=== PATIENT | male | born 1975 | race Caucasian/White ===

== ENCOUNTER 2017-09-03 12:07 | Inpatient (IN) ==
[2017-09-03] MEDS ORDERED: *HR* LORazepam 2 MG/ML VIAL IVP ONE (12:36)
[2017-09-03] MEDS ORDERED: 0.9 % Sodium Chloride 1,000 ML IVC ONE (12:36)
[2017-09-03] MEDS ORDERED: Metoclopramide 10 MG/2 ML VIAL IVP ONE (12:36)
[2017-09-03] MEDS ORDERED: *HR* Metoprolol 5 MG/5 ML VIAL IVP ONE (12:45)
[2017-09-03 12:47] LABS: Bilirubin,Urine Negative (Negative); Blood,Urine Negative (Negative); Clarity,Urine Clear (Clear); Color,Urine Yellow (Yellow); Glucose,Urine (UA) Normal (Normal); Ketones,Urine Negative (Negative); Leukocyte Esterase,Urine Negative (Negative); Nitrite,Urine Negative (Negative); PH,Urine 6.5 pH Units (5.0-8.0); Protein,Urine Negative (Neg-Trace); Specific Gravity,Urine 1.021 (1.010-1.025); Urobilinogen,Urine Normal (Normal)
--- NOTE | 2017-09-03 12:49 | Emergency Department Note ---
Disposition Clinical Impression: Suicidal ideation Hypertension Qualifiers: Hypertension type: unspecified Qualified Code(s): I10 - Essential (primary) hypertension Disposition: Admitted As Inpatient Referrals: NONE,PCP [Primary Care Provider] - Forms: ED Satisfaction Letter Time of Disposition: 17:11 General Adult HPI - General Chief complaint: ED Psychiatric Symptoms Stated complaint: SI Time Seen by Provider: 09/03/17 12:15 Source: patient Mode of arrival: ambulatory Limitations: no limitations Nursing Notes Reviewed: Yes Vital Signs Reviewed: Yes - History of Present Illness HPI Narrative: 41 year old male who has bene dealing with increased family and social stressors such as just getting , starting a new job, and going back to school has been havin increased signs of hopelessness and depression and in the past week he has been wanting to kill himself and end it all. In addition to that he also has been battling with increased HTNa nd has not been taking any of his HTN medications and has missed a few doses. Shawn states that he also has a mild headche but this has not changed in character or duration from his typical headache and they are tupically due ot HTN. Shawn denies chest pain. He also has been dealing with a reent stomach virus with NVD, but denies abdominal pain Pain Scale: 8 - Related Data Home Medications Medication Instructions Recorded Confirmed Escitalopram [Lexapro] 20 mg PO QAM 11/22/14 01/23/17 Levothyroxine [Synthroid] 75 mcg PO QAM 11/22/14 01/23/17 hydroCHLOROthiazide 25 mg PO QAM 11/22/14 01/23/17 [Hydrochlorothiazide] Esomeprazole Magnesium [Nexium] 20 mg PO QAM 02/21/15 01/23/17 Flaxseed Oil 1,000 mg PO QAM 02/21/15 01/23/17 Losartan Potassium [Cozaar] 50 mg PO DAILY 01/23/17 01/23/17 Phenylephrine HCl in 0.9% NaCl 0.25 - 0.5 ml IJ AD 01/23/17 01/23/17 [Phenylephrine 1 mg/ml-Ns Syrng] Previous Rx's Medication Instructions Recorded Clindamycin [Cleocin] 150 mg PO Q6HR #7 capsule 01/23/17 HYDROcodone/Acet 5/325 mg [Comstock 1 tab PO Q6H PRN #20 tab 01/23/17 5-325 mg] Ibuprofen [Motrin] 600 mg PO Q8HR #20 tab 01/23/17 OxyCODONE/APAP 5/325 [Percocet 1 each PO Q6HR PRN #15 tablet 01/25/17 5/325 MG] Allergies Allergy/AdvReac Type Severity Reaction Status Date / Time Penicillins [PCN] Allergy Anaphylaxis Verified 09/03/17 12:12 acetaminophen [From Vicodin] AdvReac Agitated Verified 09/03/17 13:41 hydrocodone [From Vicodin] AdvReac Agitated Verified 09/03/17 13:41 Constitutional: Denies: fever, chills, weakness, weight change Eyes: Denies: eye pain, eye discharge, vision change ENT ED: Denies: ear pain, throat pain, dental pain, hearing loss, epistaxis, congestion, dysphagia Cardiovascular: Denies: chest pain, palpitations, dyspnea on exertion, edema, syncope Respiratory: Denies: cough, dyspnea, wheezes, hemoptysis, stridor Gastrointestinal: Reports: nausea, vomiting, diarrhea. Denies: abdominal pain, constipation, hematemesis, melena, hematochezia Genitourinary: Denies: urgency, dysuria, frequency, hematuria Musculoskeletal: Denies: back pain, neck pain, arthralgia, myalgia Integumentary: Denies: rash, abrasion, lesions Neurological: Reports: headache. Denies: weakness, numbness, paresthesias, confusion, abnormal gait, vertigo Psychiatric: Reports: depression, suicidal thoughts. Denies: anxiety, homicidal thoughts, auditory hallucinations, visual hallucinations Endocrine: Denies: fatigue Hematological/Lymphatic: Denies: easy bleeding, easy bruising Allergic/Immunologic: Denies: facial swelling, urticaria Past Medical History - Past Medical History Medical history: Reports: GERD, hypertension, migraine, thyroid disease Surgical history: Reports: appendectomy Psychiatric history: Reports: anxiety, depression, panic disorder - Social History Smoking Status: Former smoker Smokeless Tobacco Status: No Alcohol use: Reports: occasionally Drug use: Reports: none Physical Exam - General Limitations: no limitations General appearance: alert, in no apparent distress - Head Head exam: atraumatic, normocephalic, normal inspection - Eye Eye exam: Present: normal appearance, PERRL, EOMI - Expanded Eye Exam Pupils: Bilateral: reactive - ENT ENT exam: normal exam, normal oropharynx, mucous membranes moist - Expanded ENT Exam External ear exam: Present: normal external inspection Mouth exam: Present: normal external inspection Teeth exam: Present: normal inspection Throat exam: Present: normal inspection - Neck Neck exam: Present: normal inspection, full ROM, trachea midline - Chest Chest inspection: Present: normal inspection, symmetric chest wall rise - Respiratory Respiratory exam: Present: normal lung sounds bilaterally - Cardiovascular Cardiovascular exam: Present: regular rate, normal rhythm, normal heart sounds - Abdominal Exam Abdominal exam: Present: soft, Non-Tender. Absent: tenderness, distention, guarding, rebound, rigidity - Extremities Exam Extremities exam: Present: normal inspection, full ROM. Absent: tenderness, pedal edema - Expanded Upper Extremity Exam Shoulder exam: Present: normal inspection, full ROM Arm exam: Present: normal inspection, full ROM Elbow exam: Present: normal inspection, full ROM Forearm/Wrist exam: Present: normal inspection, full ROM Hand exam: Present: normal inspection, full ROM Vascular exam: Normal: capillary refill, radial pulse - Expanded Lower Extremity Exam Hip/Pelvis exam: Present: normal inspection, full ROM Upper leg exam: Present: normal inspection, full ROM Knee exam: Present: normal inspection, full ROM Lower leg exam: Present: normal inspection, full ROM Ankle exam: Present: normal inspection, full ROM Foot/toe exam: Present: normal inspection, full ROM Neurovascular/Tendon exam: Absent: motor deficit, sensory deficit, tendon deficit - Back Exam Back exam: Present: normal inspection, full ROM. Absent: tenderness - Neurological Exam Neurological exam: Present: alert, oriented X3 - Expanded Neurological Exam Patient oriented to: Present: person, place, time Speech: Present: fluid speech Cranial nerves: EOM function (II, III, IV, ): Normal, facial sensation (V): Normal, facial palsy (VII): Normal, gag reflex (IX): Normal, spinal accessory function (XI): Normal, tongue deviation (XII): Normal Cerebellar function: finger to nose: Normal, heel to ng: Normal Cerebellar function: normal gait Motor strength - LUE: 5/5 Motor strength - RUE: 5/5 Motor strength - LLE: 5/5 Motor strength - RLE: 5/5 Upper motor neuron exam: kika neglect: Absent bilaterally, pronator drift: Absent bilaterally Sensory exam upper extremity: light touch: Normal, pin prick: Normal Sensory exam lower extremity: light touch: Normal, pin prick: Normal Coma Scale Eye Opening: Spontaneous Coma Scale Motor Response: Obeys Commands Coma Scale Verbal Response: Oriented Coma Scale Total: 15 - Psychiatric Psychiatric exam: Present: normal affect, normal mood - Skin Skin exam: Present: warm, dry, intact, normal color Course Course Narrative: we will do a hypertensinve emergency workup and likey admit to medicnie and then they can consult [facility] - Reevaluation(s) Reevaluation #1: patients blood pressure has improved to 150/90s. He is medically cleared. [facility] consult Time: 14:19 - Consultations Consultation #1: [facility] has accepted patient for admission. Time: 17:11 Vital Signs Temperature 98.0 F 09/03/17 12:10 Pulse Rate 102 09/03/17 12:10 Respiratory Rate 18 09/03/17 12:10 Blood Pressure 196/117 09/03/17 12:10 O2 Sat by Pulse Oximetry 98 09/03/17 12:10 Temperature 98.0 F 09/03/17 13:41 Pulse Rate 84 09/03/17 15:21 Respiratory Rate 18 09/03/17 15:21 Blood Pressure 141/90 09/03/17 15:21 O2 Sat by Pulse Oximetry 97 09/03/17 15:21 Oxygen Delivery Oxygen Delivery Room Air Medical Decision Making - Medical Records Medical records reviewed: Yes I reviewed the patient's medical records. - Lab Data Lab results reviewed: Yes I reviewed the patient's lab results. Result diagrams: 09/03/17 12:25 09/03/17 12:25 Lab Results 09/03/17 09/03/17 09/03/17 Range/Units 12:25 12:25 12:25 WBC 7.3 (4.3-11.1) K/mcL RBC 5.32 (4.19-5.50) M/mcL Hgb 14.4 (12.9-16.9) g/dL Hct 42.8 (37.5-50.1) % MCV 80.5 L (83.0-100.0) fL MCH 27.1 L (28.0-33.3) pg MCHC 33.6 (31.6-35.5) g/dL RDW 13.2 (11.5-14.5) % Plt Count 331 (140-400) K/mcL MPV 9.2 L (9.4-12.4) fL Immature Gran % 0.3 (0-4) % Seg Neutrophils % 64.0 % Lymphocytes % 26.9 % Monocytes % 6.2 % Eosinophils % 2.2 % Basophils % 0.4 % Neutrophils # 4.7 (1.6-8.9) K/mcL Lymphocytes # 2.0 (0.6-4.6) K/mcL Monocytes # 0.5 (0.0-1.3) K/mcL Eosinophils # 0.2 (0.0-0.6) K/mcL Basophils # 0.0 (0.0-0.2) K/mcL PT (9.4-12.1) Seconds INR APTT (26.0-36.0) Seconds Sodium (136-145) mEq/L Potassium (3.5-5.1) mEq/L Chloride (98-107) mEq/L Carbon Dioxide (23-29) mEq/L BUN (6-20) mg/dL Creatinine (0.70-1.30) mg/dL Est GFR ( Amer) (> 60) Est GFR (Non-Af Amer) (> 60) BUN/Creatinine Ratio (6-26) Glucose (70-105) mg/dL Calculated Osmolality (280-300) Calcium (8.6-10.3) mg/dL Total Bilirubin (0.3-1.0) mg/dL Direct Bilirubin (0.0-0.2) mg/dL Indirect Bilirubin (0.0-1.2) mg/dL AST (13-39) Units/L ALT (7-52) Units/L Alkaline Phosphatase (34-104) Units/L Troponin I (< 0.04) ng/mL Serum Total Protein (6.4-8.9) g/dL Albumin (3.5-5.7) g/dL Globulin (2.4-3.5) g/dL Albumin/Globulin Ratio (1.1-2.2) Lipase (11-82) Units/L Urine Color Yellow (Yellow) Urine Clarity Clear (Clear) Urine pH 6.5 (5.0-8.0) pH Units Ur Specific Stearns 1.021 (1.010-1.025) Urine Protein Negative (Neg-Trace) mg/dL Urine Glucose (UA) Normal (Normal) mg/dL Urine Ketones Negative (Negative) mg/dL Urine Blood Negative (Negative) Urine Nitrite Negative (Negative) Urine Bilirubin Negative (Negative) Urine Urobilinogen Normal (Normal) mg/dL Ur Leukocyte Esterase Negative (Negative) Salicylates (15.0-30.0) mg/dL Urine Opiates Screen Negative (Qctmqg=630) ng/mL Acetaminophen (10-20) mcg/mL Ur Barbiturates Screen Negative (Yeacxh=664) ng/mL Ur Phencyclidine Scrn Negative (Cutoff=25) ng/mL Ur Amphetamines Screen Negative (Nkleal=7124) ng/mL U Benzodiazepines Scrn Negative (Modmbl=208) ng/mL Urine Cocaine Screen Negative (Cutoff= 300) ng/mL U Marijuana (THC) Screen Negative (Cutoff = 50) ng/mL Ethyl Alcohol (Less than 10) mg/dL 09/03/17 09/03/17 09/03/17 Range/Units 12:25 12:42 12:42 WBC (4.3-11.1) K/mcL RBC (4.19-5.50) M/mcL Hgb (12.9-16.9) g/dL Hct (37.5-50.1) % MCV (83.0-100.0) fL MCH (28.0-33.3) pg MCHC (31.6-35.5) g/dL RDW (11.5-14.5) % Plt Count (140-400) K/mcL MPV (9.4-12.4) fL Immature Gran % (0-4) % Seg Neutrophils % % Lymphocytes % % Monocytes % % Eosinophils % % Basophils % % Neutrophils # (1.6-8.9) K/mcL Lymphocytes # (0.6-4.6) K/mcL Monocytes # (0.0-1.3) K/mcL Eosinophils # (0.0-0.6) K/mcL Basophils # (0.0-0.2) K/mcL PT 10.4 (9.4-12.1) Seconds INR 1.0 APTT 26.4 (26.0-36.0) Seconds Sodium 137 (136-145) mEq/L Potassium 3.3 L (3.5-5.1) mEq/L Chloride 101 (98-107) mEq/L Carbon Dioxide 28 (23-29) mEq/L BUN 13 (6-20) mg/dL Creatinine 0.84 (0.70-1.30) mg/dL Est GFR ( Amer) > 60 (> 60) Est GFR (Non-Af Amer) > 60 (> 60) BUN/Creatinine Ratio 15 (6-26) Glucose 152 H (70-105) mg/dL Calculated Osmolality 287 (280-300) Calcium 9.7 (8.6-10.3) mg/dL Total Bilirubin 0.3 (0.3-1.0) mg/dL Direct Bilirubin 0.1 (0.0-0.2) mg/dL Indirect Bilirubin 0.2 (0.0-1.2) mg/dL AST 12 L (13-39) Units/L ALT 12 (7-52) Units/L Alkaline Phosphatase 77 (34-104) Units/L Troponin I < 0.03 (< 0.04) ng/mL Serum Total Protein 6.5 (6.4-8.9) g/dL Albumin 4.0 (3.5-5.7) g/dL Globulin 2.5 (2.4-3.5) g/dL Albumin/Globulin Ratio 1.6 (1.1-2.2) Lipase 33 (11-82) Units/L Urine Color (Yellow) Urine Clarity (Clear) Urine pH (5.0-8.0) pH Units Ur Specific Stearns (1.010-1.025) Urine Protein (Neg-Trace) mg/dL Urine Glucose (UA) (Normal) mg/dL Urine Ketones (Negative) mg/dL Urine Blood (Negative) Urine Nitrite (Negative) Urine Bilirubin (Negative) Urine Urobilinogen (Normal) mg/dL Ur Leukocyte Esterase (Negative) Salicylates < 2.5 L (15.0-30.0) mg/dL Urine Opiates Screen (Zhyflp=120) ng/mL Acetaminophen < 10 L (10-20) mcg/mL Ur Barbiturates Screen (Blvupd=469) ng/mL Ur Phencyclidine Scrn (Cutoff=25) ng/mL Ur Amphetamines Screen (Xllhhl=8289) ng/mL U Benzodiazepines Scrn (Umlhit=822) ng/mL Urine Cocaine Screen (Cutoff= 300) ng/mL U Marijuana (THC) Screen (Cutoff = 50) ng/mL Ethyl Alcohol < 10 (Less than 10) mg/dL - Radiology Data Radiology results reviewed: Yes I reviewed the patient's radiology results. - EKG Data EKG #1 EKG attestation: Yes I reviewed and interpreted this EKG. EKG results narrative: NSR with rate of 95. NO STEMI. normal interlva.s no old ekg. 1244
[2017-09-03 13:11] LABS: Amphetamine Screen,Urine Negative ng/mL (Cutoff=1000); Barbiturate Screen,Urine Negative ng/mL (Cutoff=200); Benzodiazepines Screen,Urine Negative ng/mL (Cutoff=200); Cannabinoid Screen,Urine Negative ng/mL (Cutoff = 50); Cocaine Screen,Urine Negative ng/mL (Cutoff= 300); Opiate Screen,Urine Negative ng/mL (Cutoff=300); Phencyclidine Screen,Urine Negative ng/mL (Cutoff=25)
[2017-09-03 13:20] LABS: Eosinophils % 2.2 %; Hematocrit 42.8 % (37.5-50.1); Hemoglobin 14.4 g/dL (12.9-16.9); Immature Granulocytes % 0.3 % (0-4); Lymphocytes % 26.9 %; Mean Corpuscular HGB Conc 33.6 g/dL (31.6-35.5); Mean Corpuscular Hemoglobin 27.1 pg (28.0-33.3); Mean Corpuscular Volume 80.5 fL (83.0-100.0); Mean Platelet Volume 9.2 fL (9.4-12.4); Monocytes % 6.2 %; Platelet Count 331 K/mcL (140-400); Red Blood Count 5.32 M/mcL (4.19-5.50); Red Cell Distribution Width 13.2 % (11.5-14.5)
[2017-09-03 13:21] LABS: Basophils % 0.4 %; Eosinophils # 0.2 K/mcL (0.0-0.6); Monocytes # 0.5 K/mcL (0.0-1.3); Neutrophils # 4.7 K/mcL (1.6-8.9)
[2017-09-03 13:25] LABS: Prothrombin Time 10.4 Seconds (9.4-12.1)
[2017-09-03 13:28] LABS: Activated Partial Thrombo Time 26.4 Seconds (26.0-36.0)
[2017-09-03 13:48] LABS: Albumin/Globulin Ratio 1.6 (1.1-2.2); Bilirubin,Direct 0.1 mg/dL (0.0-0.2); Bilirubin,Indirect 0.2 mg/dL (0.0-1.2); Bilirubin,Total 0.3 mg/dL (0.3-1.0); Globulin 2.5 g/dL (2.4-3.5); Total Protein 6.5 g/dL (6.4-8.9)
[2017-09-03 13:49] LABS: Acetaminophen < 10 mcg/mL (10-20); BUN/Creatinine Ratio 15 (6-26); Blood Urea Nitrogen 13 mg/dL (6-20); Calcium 9.7 mg/dL (8.6-10.3); Carbon Dioxide 28 mEq/L (23-29); Chloride 101 mEq/L (98-107); Ethanol < 10 mg/dL (Less than 10); Glucose 152 mg/dL (70-105); Osmolality,Calculated 287 (280-300); Potassium 3.3 mEq/L (3.5-5.1); Salicylate < 2.5 mg/dL (15.0-30.0); Sodium 137 mEq/L (136-145); eGFR For African Americans > 60 (> 60); eGFR For Non-African Americans > 60 (> 60)
[2017-09-03 14:44] LABS: Troponin I < 0.03 ng/mL (< 0.04)
[2017-09-03] MEDS ORDERED: MOM Conc 10 ML UD.LIQ PO PRN (20:02)
[2017-09-03] MEDS ORDERED: Mag Hydrox/Al Hydrox/Simeth 30 ML UDC PO PRN (20:02)
[2017-09-03] MEDS ORDERED: *HR* LORazepam 2 MG/ML VIAL IM PRN (20:02)
[2017-09-03] MEDS ORDERED: hydrOXYzine pamoate 25 MG CAPSULE PO PRN (20:02)
[2017-09-03] MEDS ORDERED: Ibuprofen 400 MG TABLET PO PRN (20:02)
[2017-09-03] MEDS ORDERED: *HR* LORazepam 1 MG TABLET PO PRN (20:02)
[2017-09-03] MEDS ORDERED: traZODone 50 MG TABLET PO PRN (20:02)
[2017-09-03] MEDS ORDERED: Haloperidol Lactate 5 MG/ML VIAL IM PRN (20:02)
[2017-09-03] MEDS: hydrOXYzine pamoate 25 MG CAPSULE PO SCH (21:40)
[2017-09-03] MEDS: traZODone 50 MG TABLET PO PRN (23:27)
[2017-09-04] MEDS: hydroCHLOROthiazide 25 MG TABLET PO SCH (08:49)
--- NOTE | 2017-09-04 10:43 | Psychiatry History & Physical ---
Date of Encounter: 09/04/17 Time of Encounter: 10:40 History of Present Illness Medicare Admission Attestation: For traditional Medicare patients the provided hospital inpatient services are reasonable and necessary and in the case of services not specified as inpatient -only under 42 CFR 419.22 (n), that they are appropriately provided as inpatient services in accordance 42 CFR 412.3. For Critical Access Hospital the patient may reasonably be expected to be discharged or transferred to a hospital within 96 hours after admission to the Critical Access Hospital. History of Present Illness: Mr. Harrington is a 41 year old male admitted from the emergency department for suicidal ideation. This is first psychiatric admission for this patient reports increasing stress due to his family issues and children issues and time management. Patient felt helpless and hopeless and increased his alcohol consumption to help him sleep. Patient states he had history of depression and mental health's treatment since young age and was treated with different antidepressants and he responded well to imipramine in the past and then Lexapro. Currently he is not followed by psychiatrist or therapist. He has 3 marriages and has 2 children from 2 different marriages and 2 different locations that require extensive driving long distances every week. Patient reports poor sleep, increase in anxiety, difficulty making decisions and feeling of guilt. Patient will live with his parents were very supportive. He denies smoking, the consume caffeine, alcohol consumption increased recently due to insomnia deny any other drugs. Past Med Surg Social Fam HX - Past Medical History Medical history: GERD, hypertension, migraine, thyroid disease - Past Psychiatric History Psychiatric history: Reports: depression. Denies: prior suicide attempt Past psychiatric history details: History of outpatient treatment. Treated was imipramine and Lexapro. Currently not under psychiatric care - Past Surgical History Surgical History: appendectomy - Social History Smoking Status: Former smoker Smokeless Tobacco Status: No Alcohol use: occasionally Drug use: none - Family History Mother Living Status: Still Living Father Living Status: Still Living Hx Family Cardiac Disorders: Yes (HTN) Hx Family Cancer: Yes (Brain cancer) Brother Living Status: Still Living Hx Family Cardiac Disorders: Yes (heart disease) Medications & Allergies Escitalopram [Lexapro] 20 mg PO DAILY 09/03/17 [History] Esomeprazole Magnesium [Nexium] 40 mg PO DAILY 09/03/17 [History] Losartan Potassium [Cozaar] 100 mg PO DAILY 09/03/17 [History] hydrOXYzine HCl [Hydroxyzine HCl] 50 mg PO HS 09/03/17 [History] hydroCHLOROthiazide [Hydrochlorothiazide] 25 mg PO DAILY 09/03/17 [History] 3 Allergy/AdvReac Type Severity Reaction Status Date / Time Penicillins [PCN] Allergy Anaphylaxis Verified 09/03/17 12:12 acetaminophen [From Vicodin] AdvReac Agitated Verified 09/03/17 13:41 hydrocodone [From Vicodin] AdvReac Agitated Verified 09/03/17 13:41 Review of Systems Psychiatric: Reports: depression, anxiety, suicidal ideation Exam - HEENT Head exam IM: Present: atraumatic Eye exam IM: Present: EOMI, normal appearance, PERRL ENT exam IM: Present: normal exam - Neurological Neurological exam: Present: CN II-XII intact - Respiratory Respiratory exam IM: Present: CTAB - GI/Abdominal GI/Abdominal exam IM: Present: normal bowel sounds, soft. Absent: tenderness - Extremities Extremities exam IM: Present: full ROM - Skin Skin exam IM: Present: dry, warm - Constitutional Vitals: Temp Pulse Resp BP Pulse Ox 97.7 F 71 18 149/96 97 09/04/17 08:22 09/04/17 08:22 09/04/17 08:22 09/04/17 08:22 09/03/17 15:21 General appearance: age & developmentally appropriate, well-groomed, well- nourished, average - Musculoskeletal Gait: normal Station: relaxed Strength & Tone: normal for patient - Psychiatric Patient Orientation: Yes Person, Yes Time, Yes Place Level of alertness: Alert Behavior: calm, cooperative, anxious Psychomotor activity: Normal Eye Contact: Maintains Eye Contact Mood Description: Euthymic/stable Affect description: congruent with mood, dysphoric Speech Volume: Normal Speech pattern: normal rate, normal rhythm, normal tone, fluent, spontaneous Language & Vocabulary: consistent with education Thought Process: Linear, Goal Oriented Thought Content: Yes Suicidal ideation, No Homicidal ideation, No Overt delusions Perceptual Disturbances: No Auditory hallucinations, No Visual hallucinations Attention Span Ability: Capable of Focused Attention Memory Description: Grossly Intact Patient Reliability: Reliable Historian Fund of knowledge: Yes abstraction ability, Yes average, Yes aware of current events Intelligence Estimate: Average Judgment: Limited Insight: Partial Results - Labs Labs: Laboratory Last Values WBC 7.3 K/mcL (4.3-11.1) 09/03/17 12:25 RBC 5.32 M/mcL (4.19-5.50) 09/03/17 12:25 Hgb 14.4 g/dL (12.9-16.9) 09/03/17 12:25 Hct 42.8 % (37.5-50.1) 09/03/17 12:25 MCV 80.5 fL (83.0-100.0) L 09/03/17 12:25 MCH 27.1 pg (28.0-33.3) L 09/03/17 12:25 MCHC 33.6 g/dL (31.6-35.5) 09/03/17 12:25 RDW 13.2 % (11.5-14.5) 09/03/17 12:25 Plt Count 331 K/mcL (140-400) 09/03/17 12:25 MPV 9.2 fL (9.4-12.4) L 09/03/17 12:25 Immature Gran % 0.3 % (0-4) 09/03/17 12:25 Seg Neutrophils % 64.0 % 09/03/17 12:25 Lymphocytes % 26.9 % 09/03/17 12:25 Monocytes % 6.2 % 09/03/17 12:25 Eosinophils % 2.2 % 09/03/17 12:25 Basophils % 0.4 % 09/03/17 12:25 Neutrophils # 4.7 K/mcL (1.6-8.9) 09/03/17 12:25 Lymphocytes # 2.0 K/mcL (0.6-4.6) 09/03/17 12:25 Monocytes # 0.5 K/mcL (0.0-1.3) 09/03/17 12:25 Eosinophils # 0.2 K/mcL (0.0-0.6) 09/03/17 12:25 Basophils # 0.0 K/mcL (0.0-0.2) 09/03/17 12:25 PT 10.4 Seconds (9.4-12.1) 09/03/17 12:42 INR 1.0 09/03/17 12:42 APTT 26.4 Seconds (26.0-36.0) 09/03/17 12:42 Sodium 137 mEq/L (136-145) 09/03/17 12:25 Potassium 3.3 mEq/L (3.5-5.1) L 09/03/17 12:25 Chloride 101 mEq/L (98-107) 09/03/17 12:25 Carbon Dioxide 28 mEq/L (23-29) 09/03/17 12:25 BUN 13 mg/dL (6-20) 09/03/17 12:25 Creatinine 0.84 mg/dL (0.70-1.30) 09/03/17 12:25 Est GFR ( Amer) > 60 (> 60) 09/03/17 12:25 Est GFR (Non-Af Amer) > 60 (> 60) 09/03/17 12:25 BUN/Creatinine Ratio 15 (6-26) 09/03/17 12:25 Glucose 152 mg/dL (70-105) H 09/03/17 12:25 Calculated Osmolality 287 (280-300) 09/03/17 12:25 Calcium 9.7 mg/dL (8.6-10.3) 09/03/17 12:25 Total Bilirubin 0.3 mg/dL (0.3-1.0) 09/03/17 12:42 Direct Bilirubin 0.1 mg/dL (0.0-0.2) 09/03/17 12:42 Indirect Bilirubin 0.2 mg/dL (0.0-1.2) 09/03/17 12:42 AST 12 Units/L (13-39) L 09/03/17 12:42 ALT 12 Units/L (7-52) 09/03/17 12:42 Alkaline Phosphatase 77 Units/L (34-104) 09/03/17 12:42 Troponin I < 0.03 ng/mL (< 0.04) 09/03/17 12:25 Serum Total Protein 6.5 g/dL (6.4-8.9) 09/03/17 12:42 Albumin 4.0 g/dL (3.5-5.7) 09/03/17 12:42 Globulin 2.5 g/dL (2.4-3.5) 09/03/17 12:42 Albumin/Globulin Ratio 1.6 (1.1-2.2) 09/03/17 12:42 Lipase 33 Units/L (11-82) 09/03/17 12:42 Urine Color Yellow (Yellow) 09/03/17 12:25 Urine Clarity Clear (Clear) 09/03/17 12:25 Urine pH 6.5 pH Units (5.0-8.0) 09/03/17 12:25 Ur Specific [place]bot 1.021 (1.010-1.025) 09/03/17 12:25 Urine Protein Negative mg/dL (Neg-Trace) 09/03/17 12:25 Urine Glucose (UA) Normal mg/dL (Normal) 09/03/17 12:25 Urine Ketones Negative mg/dL (Negative) 09/03/17 12:25 Urine Blood Negative (Negative) 09/03/17 12:25 Urine Nitrite Negative (Negative) 09/03/17 12:25 Urine Bilirubin Negative (Negative) 09/03/17 12:25 Urine Urobilinogen Normal mg/dL (Normal) 09/03/17 12:25 Ur Leukocyte Esterase Negative (Negative) 09/03/17 12:25 Salicylates < 2.5 mg/dL (15.0-30.0) L 09/03/17 12:25 Urine Opiates Screen Negative ng/mL (Tckjeg=960) 09/03/17 12:25 Acetaminophen < 10 mcg/mL (10-20) L 09/03/17 12:25 Ur Barbiturates Screen Negative ng/mL (Ytpqbx=469) 09/03/17 12:25 Ur Phencyclidine Scrn Negative ng/mL (Cutoff=25) 09/03/17 12:25 Ur Amphetamines Screen Negative ng/mL (Lnbyhe=5883) 09/03/17 12:25 U Benzodiazepines Scrn Negative ng/mL (Bmowde=185) 09/03/17 12:25 Urine Cocaine Screen Negative ng/mL (Cutoff= 300) 09/03/17 12:25 U Marijuana (THC) Screen Negative ng/mL (Cutoff = 50) 09/03/17 12:25 Ethyl Alcohol < 10 mg/dL (Less than 10) 09/03/17 12:25 Assessment and Plan (1) Severe recurrent major depression without psychotic features Current visit: Yes Status: Acute Plan: Admit inpatient for safety and stabilization, Close observation, Suicide Precautions per unit protocol, Encourage participation in unit milieu, Group Therapy, Monitor sleep, Monitor appetite Risks, benefits, side effects, alternatives discussed w/pt: Yes Patient agreeable to treatment: Yes Estimated Length of Stay (Days): 5
[2017-09-04] MEDS: traZODone 50 MG TABLET PO PRN ×2 (20:50→22:01)
[2017-09-04] MEDS: hydrOXYzine pamoate 25 MG CAPSULE PO SCH (20:51)
--- NOTE | 2017-09-05 08:23 | Electrocardiograph Report ---
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
[2017-09-05] MEDS: hydroCHLOROthiazide 25 MG TABLET PO SCH (09:12)
[2017-09-05 09:31] VITALS: BP 137/94
--- NOTE | 2017-09-05 12:37 | Discharge Summary ---
Date of Encounter: 09/05/17 Time of Encounter: 12:34 Diagnosis - Discharge Diagnosis (1) Severe recurrent major depression without psychotic features Status: Acute Medications - Discharge Medications Prescriptions: traZODone [TraZODone] 50 mg PO HS PRN #30 tablet PRN Reason: Insomnia Escitalopram [Lexapro] 20 mg PO DAILY 09/03/17 [History] Esomeprazole Magnesium [Nexium] 40 mg PO DAILY 09/03/17 [History] Losartan Potassium [Cozaar] 100 mg PO DAILY 09/03/17 [History] hydrOXYzine HCl [Hydroxyzine HCl] 50 mg PO HS 09/03/17 [History] hydroCHLOROthiazide [Hydrochlorothiazide] 25 mg PO DAILY 09/03/17 [History] traZODone [TraZODone] 50 mg PO HS PRN #30 tablet 09/05/17 [Rx] 3 Allergy/AdvReac Type Severity Reaction Status Date / Time Penicillins [PCN] Allergy Anaphylaxis Verified 09/03/17 12:12 acetaminophen [From Vicodin] AdvReac Agitated Verified 09/03/17 13:41 hydrocodone [From Vicodin] AdvReac Agitated Verified 09/03/17 13:41 Provider Date of admission: 09/03/17 17:43 Primary care physician: PCP NONE Consults: 09/04/17 12:01 Consult to Pastoral Services [CONS] Routine Comment: Discharging clinician: Bruce Dodge Psychiatry Exam - Constitutional Vitals: Temp Pulse Resp BP Pulse Ox 98.1 F 83 18 137/94 97 09/05/17 09:00 09/05/17 09:00 09/05/17 09:00 09/05/17 09:00 09/03/17 15:21 General appearance: age & developmentally appropriate, well-groomed, well- nourished - Musculoskeletal Gait: normal Station: relaxed Strength & Tone: normal for patient - Psychiatric Patient Orientation: Yes Person, Yes Time, Yes Place Level of alertness: Alert Behavior: calm, cooperative Psychomotor activity: Normal Eye Contact: Maintains Eye Contact Mood Description: Euthymic/stable Affect description: congruent with mood, full range Speech Volume: Normal Speech pattern: normal rate, normal rhythm, normal tone, fluent, spontaneous Language & Vocabulary: consistent with education Thought Process: Linear, Goal Oriented Thought Content: No Suicidal ideation, No Homicidal ideation, No Overt delusions Perceptual Disturbances: No Auditory hallucinations, No Visual hallucinations Attention Span Ability: Capable of Focused Attention Memory Description: Grossly Intact Patient Reliability: Reliable Historian Fund of knowledge: Yes abstraction ability, Yes aware of current events Intelligence Estimate: Average Judgment: Limited Insight: Partial Hospital Course Hospital course: Mr. Harrington is a 41 year old male admitted for depression multiple family stressors and lack of sleep and increased anxiety. For details of admission see [facility] the unit on the unit patient was started onon Lexapro and was given trazodone that help him have adequate sleep he participated in groups and he was educated about his medication and his illness. He was cooperative and medication compliant. His discharge planning was completed by social for his outpatient appointments. On discharge patient is medically stable, not suicidal and tolerating medications. Patient is discharged in stable condition. - Time Spent with Patient Total time spent providing and/or coordinating discharge services: Less than 30 minutes Assessment and Plan - Patient/Caregiver Discharge Instructions Activity: resume usual activities as tolerated Diet: regular diet - Follow up Plan Follow up with: [facility] [Outside] - 09/09/17 10:00 am (The above appointment is with Dr. Gutierres for primary care follow up. Please call 24 hrs ahead if unable to make your appointment.) Marcela Dozier [Behav Health Counselor] - 10/02/17 2:00 pm (The above appointment with Marcela Dozier is for mental health followup /counselling.Please brimg a photo ID/helper/driver's license. Please call at least 24 hours in advance if you can't make your appointment to reschedule. The above appointment reflects first availability. You may contact the office regularly to check for cancellations that may allow you to be seen sooner.) Functional capacity at discharge: independent ambulation Overall status at discharge: Stable Disposition: Home, Self-Care Quality - Multiple Antipsychotics Patient discharged on 2 or more antipsychotic medications: No Procedures - Procedures Procedures: Medication Management, Crisis Stabilization, Supportive Therapy, Group Therapy, Psychoeducational Therapy
== END 2017-09-05 14:10 | disposition home or self-care (01) | DRG 885 ==
LOC: EMEROO 12:07 → 1ANU 17:43
PROVIDERS: ADMIT Psychiatry & Neurology Psychiatry; ATTEND Psychiatry & Neurology Psychiatry

== ENCOUNTER 2017-09-12 09:52 | Observation (INO) ==
[2017-09-12] MEDS ORDERED: Aspirin 81 MG TAB.CHEW PO ONE (10:07)
[2017-09-12 10:32] LABS: Basophils # 0.1 K/mcL (0.0-0.2); Basophils % 0.6 %; Eosinophils # 0.3 K/mcL (0.0-0.6); Eosinophils % 3.7 %; Hematocrit 45.8 % (37.5-50.1); Hemoglobin 14.6 g/dL (12.9-16.9); Immature Granulocytes % 1.7 % (0-4); Lymphocytes # 3.4 K/mcL (0.6-4.6); Lymphocytes % 40.1 %; Mean Corpuscular HGB Conc 31.9 g/dL (31.6-35.5); Mean Corpuscular Hemoglobin 25.8 pg (28.0-33.3); Mean Corpuscular Volume 80.9 fL (83.0-100.0); Mean Platelet Volume 9.4 fL (9.4-12.4); Monocytes # 0.6 K/mcL (0.0-1.3); Monocytes % 7.4 %; Neutrophils # 3.9 K/mcL (1.6-8.9); Platelet Count 299 K/mcL (140-400); Red Blood Count 5.66 M/mcL (4.19-5.50); Red Cell Distribution Width 13.9 % (11.5-14.5); Segmented Neutrophils % 46.5 %
[2017-09-12] MEDS ORDERED: *HR* LORazepam 2 MG/ML VIAL IVP ONE ×2 (10:33→19:48)
[2017-09-12] MEDS ORDERED: 0.9 % Sodium Chloride 1,000 ML IVC ONE (10:33)
--- NOTE | 2017-09-12 10:38 | Emergency Department Note ---
Disposition Clinical Impression: Chest pain, rule out acute myocardial infarction Disposition: Admitted As Inpatient Condition: Fair Referrals: NONE,PCP [Non-Partnered Physician] - Forms: ED Satisfaction Letter Time of Disposition: 12:23 Chest Pain HPI - General Chief Complaint: ED Chest Pain Stated Complaint: CP Time Seen by Provider: 09/12/17 10:06 Source: patient Limitations: no limitations - History of Present Illness HPI Narrative: 42-year-old male presents for evaluation of substernal chest pressure that radiates directly through to the interscapular region. This began approximately one hour prior to his arrival. It is associated with a degree of nausea and some shortness of breath. He also states of being lightheaded and "feeling like I am going to black out". He denies any fever, cough, or hemoptysis. He rates this pain pressure and 8 out of 10 on a 10 point scale. He does state that he has been battling severe insomnia for the past several days. He states that his primary care provider had written him for a prescription of hydroxyzine and melatonin. He stated no relief with these medications. He admits to taking Benadryl in addition to these medications as well as his regularly prescribed trazodone and Lexapro. This morning, he stated that he was desperate for sleep so he drank a single 16 ounce can of beer shortly after taking the aforementioned medications. He states that shortly thereafter is when the chest pain and shortness of breath began. He is uncertain as to how much of which medication he had taken however it is believed that he has taken more medication than he was directed. Onset (ago): hour(s) (1) Duration: constant Onset: during rest Pain Location: substernal Severity: severe Severity scale (1-10): 8 Quality: tightness Pain Radiation: back Improves with: nothing Worsens with: nothing Associated symptoms: Reports: nausea, dyspnea, other (near syncope). Denies: vomiting, diaphoresis, syncope, palpitations, fever, cough - Related Data Home Medications Medication Instructions Recorded Confirmed Escitalopram [Lexapro] 20 mg PO DAILY 09/03/17 09/03/17 Esomeprazole Magnesium [Nexium] 40 mg PO DAILY 09/03/17 09/03/17 Losartan Potassium [Cozaar] 100 mg PO DAILY 09/03/17 09/03/17 hydrOXYzine HCl [Hydroxyzine HCl] 50 mg PO HS 09/03/17 09/03/17 hydroCHLOROthiazide 25 mg PO DAILY 09/03/17 09/03/17 [Hydrochlorothiazide] Previous Rx's Medication Instructions Recorded traZODone [TraZODone] 50 mg PO HS PRN #30 tablet 09/05/17 Allergies Allergy/AdvReac Type Severity Reaction Status Date / Time Penicillins [PCN] Allergy Anaphylaxis Verified 09/03/17 12:12 acetaminophen [From Vicodin] AdvReac Agitated Verified 09/03/17 13:41 hydrocodone [From Vicodin] AdvReac Agitated Verified 09/03/17 13:41 All systems ED: reviewed and negative except as stated. Constitutional: Denies: fever, chills, weakness, weight change Eyes: Denies: eye pain, eye discharge, vision change ENT ED: Denies: ear pain, throat pain, dental pain, hearing loss, epistaxis, congestion, dysphagia Cardiovascular: Reports: as per HPI, chest pain, other (Near syncope). Denies: palpitations, dyspnea on exertion, edema, syncope Respiratory: Reports: as per HPI, dyspnea. Denies: cough, wheezes, hemoptysis, stridor, sputum production Gastrointestinal: Denies: abdominal pain, nausea, vomiting, diarrhea, constipation, hematemesis, melena, hematochezia Genitourinary: Denies: urgency, dysuria, frequency, hematuria Musculoskeletal: Denies: back pain, neck pain, arthralgia, myalgia Integumentary: Denies: rash, abrasion, lesions Neurological: Denies: headache, weakness, numbness, paresthesias, confusion, abnormal gait, vertigo Psychiatric: Reports: as per HPI, other (Somnific). Denies: anxiety, depression , suicidal thoughts, homicidal thoughts, auditory hallucinations, visual hallucinations Endocrine: Denies: fatigue Hematological/Lymphatic: Denies: easy bleeding, easy bruising Allergic/Immunologic: Denies: facial swelling, urticaria Chest Pain PMH - Past Medical History Medical history: Reports: GERD, hypertension, migraine, thyroid disease Surgical history: Reports: appendectomy Psychiatric history: Reports: anxiety, depression - Social History Smoking Status: Former smoker Alcohol use: Reports: occasionally Drug use: Reports: none Physical Exam - General Limitations: no limitations General appearance: alert, in no apparent distress - Head Head exam: atraumatic, normocephalic, normal inspection - Eye Eye exam: Present: normal appearance, PERRL, EOMI. Absent: nystagmus - ENT ENT exam: mucous membranes moist - Neck Neck exam: Present: normal inspection, full ROM, trachea midline. Absent: lymphadenopathy - Chest Chest inspection: Present: normal inspection, symmetric chest wall rise. Absent : tenderness, rash - Respiratory Respiratory exam: Present: normal lung sounds bilaterally. Absent: respiratory distress, wheezes, stridor, accessory muscle use, prolonged expiratory phase - Cardiovascular Cardiovascular exam: Present: regular rate, normal rhythm, normal heart sounds - Abdominal Exam Abdominal exam: Present: soft, Non-Tender, normal bowel sounds - Extremities Exam Extremities exam: Present: normal inspection, full ROM. Absent: tenderness, pedal edema - Neurological Exam Neurological exam: Present: alert, oriented X3 - Psychiatric Psychiatric exam: Present: anxious - Skin Skin exam: Present: warm, dry, intact, normal color. Absent: rash Course Course Narrative: Spoke with poison control center regarding the patient's self administration of an unknown amount of hydroxyzine, Benadryl, melatonin, trazodone, and Lexapro in addition to the can of beer this morning. Poison control center human resources representative states that the hydroxyzine and Benadryl could account for some of the patient's tachycardia, hypertension, and even chest pain. He recommends seizure precautions, IV Ativan, and IV fluid for volume anglican. I spoke with Dr. Fisher regarding this patient's presentation. The patient will be admitted to the hospital service for further observation and evaluation. I spoke with Dr. Kovacs of the Hospital services agreed to accept the patient for further observation. Vital Signs Temperature 0 F L 09/12/17 09:55 Pulse Rate 0 09/12/17 09:55 Respiratory Rate 0 09/12/17 09:55 Blood Pressure 0/0 09/12/17 09:55 O2 Sat by Pulse Oximetry 0 09/12/17 09:55 Temperature 0 F L 09/12/17 09:55 Pulse Rate 94 09/12/17 11:39 Respiratory Rate 18 09/12/17 11:39 Blood Pressure 146/88 09/12/17 11:39 O2 Sat by Pulse Oximetry 97 09/12/17 11:39 Oxygen Delivery Oxygen Delivery Room Air Chest Pain - Medical Records Medical records reviewed: Yes I reviewed the patient's medical records. - Lab Data Lab results reviewed: Yes I reviewed the patient's lab results. Lab results narrative: Laboratory Last Values WBC 8.4 K/mcL (4.3-11.1) 09/12/17 10:05 RBC 5.66 M/mcL (4.19-5.50) H 09/12/17 10:05 Hgb 14.6 g/dL (12.9-16.9) 09/12/17 10:05 Hct 45.8 % (37.5-50.1) 09/12/17 10:05 MCV 80.9 fL (83.0-100.0) L 09/12/17 10:05 MCH 25.8 pg (28.0-33.3) L 09/12/17 10:05 MCHC 31.9 g/dL (31.6-35.5) 09/12/17 10:05 RDW 13.9 % (11.5-14.5) 09/12/17 10:05 Plt Count 299 K/mcL (140-400) 09/12/17 10:05 MPV 9.4 fL (9.4-12.4) 09/12/17 10:05 Immature Gran % 1.7 % (0-4) 09/12/17 10:05 Seg Neutrophils % 46.5 % 09/12/17 10:05 Lymphocytes % 40.1 % 09/12/17 10:05 Monocytes % 7.4 % 09/12/17 10:05 Eosinophils % 3.7 % 09/12/17 10:05 Basophils % 0.6 % 09/12/17 10:05 Neutrophils # 3.9 K/mcL (1.6-8.9) 09/12/17 10:05 Lymphocytes # 3.4 K/mcL (0.6-4.6) 09/12/17 10:05 Monocytes # 0.6 K/mcL (0.0-1.3) 09/12/17 10:05 Eosinophils # 0.3 K/mcL (0.0-0.6) 09/12/17 10:05 Basophils # 0.1 K/mcL (0.0-0.2) 09/12/17 10:05 PT 9.2 Seconds (9.4-12.1) L 09/12/17 10:05 INR 0.9 09/12/17 10:05 APTT 25.8 Seconds (26.0-36.0) L 09/12/17 10:05 D-Dimer 232 ng/mLFEU (0-500) 09/12/17 10:05 Sodium 141 mEq/L (136-145) 09/12/17 10:05 Potassium 3.3 mEq/L (3.5-5.1) L 09/12/17 10:05 Chloride 102 mEq/L (98-107) 09/12/17 10:05 Carbon Dioxide 25 mEq/L (23-29) 09/12/17 10:05 BUN 17 mg/dL (6-20) 09/12/17 10:05 Creatinine 0.84 mg/dL (0.70-1.30) 09/12/17 10:05 Est GFR ( Amer) > 60 (> 60) 09/12/17 10:05 Est GFR (Non-Af Amer) > 60 (> 60) 09/12/17 10:05 BUN/Creatinine Ratio 20 (6-26) 09/12/17 10:05 Glucose 99 mg/dL (70-105) 09/12/17 10:05 Calculated Osmolality 294 (280-300) 09/12/17 10:05 Calcium 10.6 mg/dL (8.6-10.3) H 09/12/17 10:05 Troponin I < 0.03 ng/mL (< 0.04) 09/12/17 10:05 B-Natriuretic Peptide 72 pg/mL (Less than 100) 09/12/17 10:05 Urine Color Yellow (Yellow) 09/12/17 10:55 Urine Clarity Clear (Clear) 09/12/17 10:55 Urine pH 7.5 pH Units (5.0-8.0) 09/12/17 10:55 Ur Specific [place] 1.010 (1.010-1.025) 09/12/17 10:55 Urine Protein Negative mg/dL (Neg-Trace) 09/12/17 10:55 Urine Glucose (UA) Normal mg/dL (Normal) 09/12/17 10:55 Urine Ketones Negative mg/dL (Negative) 09/12/17 10:55 Urine Blood Negative (Negative) 06/07/18 10:55 Urine Nitrite Negative (Negative) 09/12/17 10:55 Urine Bilirubin Negative (Negative) 09/12/17 10:55 Urine Urobilinogen Normal mg/dL (Normal) 09/12/17 10:55 Ur Leukocyte Esterase Negative (Negative) 09/12/17 10:55 Ur Culture Indicated? NO (NO) 09/12/17 10:55 Result diagrams: 09/12/17 10:05 09/12/17 10:05 Lab Results 09/12/17 09/12/17 09/12/17 Range/Units 10:05 10:05 10:05 WBC 8.4 (4.3-11.1) K/mcL RBC 5.66 H (4.19-5.50) M/mcL Hgb 14.6 (12.9-16.9) g/dL Hct 45.8 (37.5-50.1) % MCV 80.9 L (83.0-100.0) fL MCH 25.8 L (28.0-33.3) pg MCHC 31.9 (31.6-35.5) g/dL RDW 13.9 (11.5-14.5) % Plt Count 299 (140-400) K/mcL MPV 9.4 (9.4-12.4) fL Immature Gran % 1.7 (0-4) % Seg Neutrophils % 46.5 % Lymphocytes % 40.1 % Monocytes % 7.4 % Eosinophils % 3.7 % Basophils % 0.6 % Neutrophils # 3.9 (1.6-8.9) K/mcL Lymphocytes # 3.4 (0.6-4.6) K/mcL Monocytes # 0.6 (0.0-1.3) K/mcL Eosinophils # 0.3 (0.0-0.6) K/mcL Basophils # 0.1 (0.0-0.2) K/mcL PT 9.2 L (9.4-12.1) Seconds INR 0.9 APTT 25.8 L (26.0-36.0) Seconds D-Dimer 232 (0-500) ng/mLFEU Sodium (136-145) mEq/L Potassium (3.5-5.1) mEq/L Chloride (98-107) mEq/L Carbon Dioxide (23-29) mEq/L BUN (6-20) mg/dL Creatinine (0.70-1.30) mg/dL Est GFR ( Amer) (> 60) Est GFR (Non-Af Amer) (> 60) BUN/Creatinine Ratio (6-26) Glucose (70-105) mg/dL Calculated Osmolality (280-300) Calcium (8.6-10.3) mg/dL Troponin I (< 0.04) ng/mL B-Natriuretic Peptide 72 (Less than 100) pg/mL Urine Color (Yellow) Urine Clarity (Clear) Urine pH (5.0-8.0) pH Units Ur Specific [place] (1.010-1.025) Urine Protein (Neg-Trace) mg/dL Urine Glucose (UA) (Normal) mg/dL Urine Ketones (Negative) mg/dL Urine Blood (Negative) Urine Nitrite (Negative) Urine Bilirubin (Negative) Urine Urobilinogen (Normal) mg/dL Ur Leukocyte Esterase (Negative) Ur Culture Indicated? (NO) 09/12/17 09/12/17 Range/Units 10:05 10:55 WBC (4.3-11.1) K/mcL RBC (4.19-5.50) M/mcL Hgb (12.9-16.9) g/dL Hct (37.5-50.1) % MCV (83.0-100.0) fL MCH (28.0-33.3) pg MCHC (31.6-35.5) g/dL RDW (11.5-14.5) % Plt Count (140-400) K/mcL MPV (9.4-12.4) fL Immature Gran % (0-4) % Seg Neutrophils % % Lymphocytes % % Monocytes % % Eosinophils % % Basophils % % Neutrophils # (1.6-8.9) K/mcL Lymphocytes # (0.6-4.6) K/mcL Monocytes # (0.0-1.3) K/mcL Eosinophils # (0.0-0.6) K/mcL Basophils # (0.0-0.2) K/mcL PT (9.4-12.1) Seconds INR APTT (26.0-36.0) Seconds D-Dimer (0-500) ng/mLFEU Sodium 141 (136-145) mEq/L Potassium 3.3 L (3.5-5.1) mEq/L Chloride 102 (98-107) mEq/L Carbon Dioxide 25 (23-29) mEq/L BUN 17 (6-20) mg/dL Creatinine 0.84 (0.70-1.30) mg/dL Est GFR ( Amer) > 60 (> 60) Est GFR (Non-Af Amer) > 60 (> 60) BUN/Creatinine Ratio 20 (6-26) Glucose 99 (70-105) mg/dL Calculated Osmolality 294 (280-300) Calcium 10.6 H (8.6-10.3) mg/dL Troponin I < 0.03 (< 0.04) ng/mL B-Natriuretic Peptide (Less than 100) pg/mL Urine Color Yellow (Yellow) Urine Clarity Clear (Clear) Urine pH 7.5 (5.0-8.0) pH Units Ur Specific [place] 1.010 (1.010-1.025) Urine Protein Negative (Neg-Trace) mg/dL Urine Glucose (UA) Normal (Normal) mg/dL Urine Ketones Negative (Negative) mg/dL Urine Blood Negative (Negative) Urine Nitrite Negative (Negative) Urine Bilirubin Negative (Negative) Urine Urobilinogen Normal (Normal) mg/dL Ur Leukocyte Esterase Negative (Negative) Ur Culture Indicated? NO (NO) - Radiology Data Radiology results reviewed: Yes I reviewed the patient's radiology results. Chest X-Ray 09/12/17 10:07 IMPRESSION: No acute process. D/ / Efe Aguirre MD / Efe Aguirre MD Interpreting Provider: Efe Aguirre MD Head CT 09/12/17 10:33 IMPRESSION: No acute intracranial abnormality. D/ / Kentrell Peguero MD / Kentrell Peguero MD Interpreting Provider: Kentrell Peguero MD - EKG Data EKG attestation: Yes I reviewed and interpreted this EKG. EKG results narrative: EKG reviewed by Dr. Fisher as well. EKG shows a sinus tachycardia at a rate of 103 bpm. WI interval 157, QRS duration 89, QT/QTc interval 348/408. No ectopy noted. No ST elevation. No significant changes when compared to an EKG dated from 09/03/17.
[2017-09-12 10:42] LABS: INR 0.9; Prothrombin Time 9.2 Seconds (9.4-12.1)
[2017-09-12 10:44] LABS: Activated Partial Thrombo Time 25.8 Seconds (26.0-36.0)
[2017-09-12 11:02] LABS: BUN/Creatinine Ratio 20 (6-26); Blood Urea Nitrogen 17 mg/dL (6-20); Calcium 10.6 mg/dL (8.6-10.3); Carbon Dioxide 25 mEq/L (23-29); Chloride 102 mEq/L (98-107); Glucose 99 mg/dL (70-105); Osmolality,Calculated 294 (280-300); Potassium 3.3 mEq/L (3.5-5.1); Sodium 141 mEq/L (136-145); Troponin I < 0.03 ng/mL (< 0.04); eGFR For African Americans > 60 (> 60); eGFR For Non-African Americans > 60 (> 60)
[2017-09-12 11:03] LABS: Bilirubin,Urine Negative (Negative); Blood,Urine Negative (Negative); Clarity,Urine Clear (Clear); Color,Urine Yellow (Yellow); Glucose,Urine (UA) Normal (Normal); Ketones,Urine Negative (Negative); Leukocyte Esterase,Urine Negative (Negative); Nitrite,Urine Negative (Negative); PH,Urine 7.5 pH Units (5.0-8.0); Protein,Urine Negative (Neg-Trace); Urobilinogen,Urine Normal (Normal)
--- NOTE | 2017-09-12 12:08 | Emergency Department Note ---
Disposition Clinical Impression: ACS (acute coronary syndrome) Disposition: Admitted As Inpatient Referrals: NONE,PCP [Non-Partnered Physician] - Forms: ED Satisfaction Letter General Adult HPI - General Chief complaint: ED Chest Pain Stated complaint: CP Time Seen by Provider: 09/12/17 10:06 Source: patient Limitations: no limitations - History of Present Illness Pain Scale: 0 - Related Data Home Medications Medication Instructions Recorded Confirmed Escitalopram [Lexapro] 20 mg PO DAILY 09/03/17 09/03/17 Esomeprazole Magnesium [Nexium] 40 mg PO DAILY 09/03/17 09/03/17 Losartan Potassium [Cozaar] 100 mg PO DAILY 09/03/17 09/03/17 hydrOXYzine HCl [Hydroxyzine HCl] 50 mg PO HS 09/03/17 09/03/17 hydroCHLOROthiazide 25 mg PO DAILY 09/03/17 09/03/17 [Hydrochlorothiazide] Previous Rx's Medication Instructions Recorded traZODone [TraZODone] 50 mg PO HS PRN #30 tablet 09/05/17 Allergies Allergy/AdvReac Type Severity Reaction Status Date / Time Penicillins [PCN] Allergy Anaphylaxis Verified 09/03/17 12:12 acetaminophen [From Vicodin] AdvReac Agitated Verified 09/03/17 13:41 hydrocodone [From Vicodin] AdvReac Agitated Verified 09/03/17 13:41 Constitutional: Denies: fever, chills, weakness, weight change Eyes: Denies: eye pain, eye discharge, vision change ENT ED: Denies: ear pain, throat pain, dental pain, hearing loss, epistaxis, congestion, dysphagia Cardiovascular: Reports: as per HPI, chest pain, other (Near syncope). Denies: palpitations, dyspnea on exertion, edema, syncope Respiratory: Reports: as per HPI, dyspnea. Denies: cough, wheezes, hemoptysis, stridor, sputum production Gastrointestinal: Denies: abdominal pain, nausea, vomiting, diarrhea, constipation, hematemesis, melena, hematochezia Genitourinary: Denies: urgency, dysuria, frequency, hematuria Musculoskeletal: Denies: back pain, neck pain, arthralgia, myalgia Integumentary: Denies: rash, abrasion, lesions Neurological: Denies: headache, weakness, numbness, paresthesias, confusion, abnormal gait, vertigo Psychiatric: Reports: as per HPI, other (Somnific). Denies: anxiety, depression , suicidal thoughts, homicidal thoughts, auditory hallucinations, visual hallucinations Endocrine: Denies: fatigue Hematological/Lymphatic: Denies: easy bleeding, easy bruising Allergic/Immunologic: Denies: facial swelling, urticaria Past Medical History - Past Medical History Medical history: Reports: GERD, hypertension, migraine, thyroid disease Surgical history: Reports: appendectomy Psychiatric history: Reports: anxiety, depression - Social History Smoking Status: Former smoker Smokeless Tobacco Status: No Alcohol use: Reports: occasionally Drug use: Reports: none Physical Exam - General Limitations: no limitations General appearance: alert, in no apparent distress Course - Reevaluation(s) Reevaluation #1: ATTESTATION NOTE I examined this patient and my medical decision-making was reviewed with the nurse practitioner Master Orozco. I agree with the documented findings, disposition and treatment plan as described except to the extent set forth below. I have personally performed a face to face evaluation on this patient. I have reviewed and agree with the care plan. Briefly: 42-year-old male being treated for anxiety and depression is been on multiple medications said he has not slept for about a week to smoke family history coronary artery disease said he drank a beer earlier that sharp chest pain going to his back. Has left arm EKG shows no acute ischemic changes negative troponin normal TSH labs. Patient will be admitted for chest pain ACS workup. Patient disposition pending Time: 12:07 Vital Signs Temperature 0 F L 09/12/17 09:55 Pulse Rate 0 09/12/17 09:55 Respiratory Rate 0 09/12/17 09:55 Blood Pressure 0/0 09/12/17 09:55 O2 Sat by Pulse Oximetry 0 09/12/17 09:55 Temperature 0 F L 09/12/17 09:55 Pulse Rate 94 09/12/17 11:39 Respiratory Rate 18 09/12/17 11:39 Blood Pressure 146/88 09/12/17 11:39 O2 Sat by Pulse Oximetry 97 09/12/17 11:39 Oxygen Delivery Oxygen Delivery Room Air Medical Decision Making - Lab Data Result diagrams: 09/12/17 10:05 09/12/17 10:05 Lab Results 09/12/17 09/12/17 09/12/17 Range/Units 10:05 10:05 10:05 WBC 8.4 (4.3-11.1) K/mcL RBC 5.66 H (4.19-5.50) M/mcL Hgb 14.6 (12.9-16.9) g/dL Hct 45.8 (37.5-50.1) % MCV 80.9 L (83.0-100.0) fL MCH 25.8 L (28.0-33.3) pg MCHC 31.9 (31.6-35.5) g/dL RDW 13.9 (11.5-14.5) % Plt Count 299 (140-400) K/mcL MPV 9.4 (9.4-12.4) fL Immature Gran % 1.7 (0-4) % Seg Neutrophils % 46.5 % Lymphocytes % 40.1 % Monocytes % 7.4 % Eosinophils % 3.7 % Basophils % 0.6 % Neutrophils # 3.9 (1.6-8.9) K/mcL Lymphocytes # 3.4 (0.6-4.6) K/mcL Monocytes # 0.6 (0.0-1.3) K/mcL Eosinophils # 0.3 (0.0-0.6) K/mcL Basophils # 0.1 (0.0-0.2) K/mcL PT 9.2 L (9.4-12.1) Seconds INR 0.9 APTT 25.8 L (26.0-36.0) Seconds D-Dimer 232 (0-500) ng/mLFEU Sodium (136-145) mEq/L Potassium (3.5-5.1) mEq/L Chloride (98-107) mEq/L Carbon Dioxide (23-29) mEq/L BUN (6-20) mg/dL Creatinine (0.70-1.30) mg/dL Est GFR ( Amer) (> 60) Est GFR (Non-Af Amer) (> 60) BUN/Creatinine Ratio (6-26) Glucose (70-105) mg/dL Calculated Osmolality (280-300) Calcium (8.6-10.3) mg/dL Troponin I (< 0.04) ng/mL B-Natriuretic Peptide 72 (Less than 100) pg/mL Urine Color (Yellow) Urine Clarity (Clear) Urine pH (5.0-8.0) pH Units Ur Specific [place] (1.010-1.025) Urine Protein (Neg-Trace) mg/dL Urine Glucose (UA) (Normal) mg/dL Urine Ketones (Negative) mg/dL Urine Blood (Negative) Urine Nitrite (Negative) Urine Bilirubin (Negative) Urine Urobilinogen (Normal) mg/dL Ur Leukocyte Esterase (Negative) Ur Culture Indicated? (NO) 09/12/17 09/12/17 Range/Units 10:05 10:55 WBC (4.3-11.1) K/mcL RBC (4.19-5.50) M/mcL Hgb (12.9-16.9) g/dL Hct (37.5-50.1) % MCV (83.0-100.0) fL MCH (28.0-33.3) pg MCHC (31.6-35.5) g/dL RDW (11.5-14.5) % Plt Count (140-400) K/mcL MPV (9.4-12.4) fL Immature Gran % (0-4) % Seg Neutrophils % % Lymphocytes % % Monocytes % % Eosinophils % % Basophils % % Neutrophils # (1.6-8.9) K/mcL Lymphocytes # (0.6-4.6) K/mcL Monocytes # (0.0-1.3) K/mcL Eosinophils # (0.0-0.6) K/mcL Basophils # (0.0-0.2) K/mcL PT (9.4-12.1) Seconds INR APTT (26.0-36.0) Seconds D-Dimer (0-500) ng/mLFEU Sodium 141 (136-145) mEq/L Potassium 3.3 L (3.5-5.1) mEq/L Chloride 102 (98-107) mEq/L Carbon Dioxide 25 (23-29) mEq/L BUN 17 (6-20) mg/dL Creatinine 0.84 (0.70-1.30) mg/dL Est GFR ( Amer) > 60 (> 60) Est GFR (Non-Af Amer) > 60 (> 60) BUN/Creatinine Ratio 20 (6-26) Glucose 99 (70-105) mg/dL Calculated Osmolality 294 (280-300) Calcium 10.6 H (8.6-10.3) mg/dL Troponin I < 0.03 (< 0.04) ng/mL B-Natriuretic Peptide (Less than 100) pg/mL Urine Color Yellow (Yellow) Urine Clarity Clear (Clear) Urine pH 7.5 (5.0-8.0) pH Units Ur Specific [place] 1.010 (1.010-1.025) Urine Protein Negative (Neg-Trace) mg/dL Urine Glucose (UA) Normal (Normal) mg/dL Urine Ketones Negative (Negative) mg/dL Urine Blood Negative (Negative) Urine Nitrite Negative (Negative) Urine Bilirubin Negative (Negative) Urine Urobilinogen Normal (Normal) mg/dL Ur Leukocyte Esterase Negative (Negative) Ur Culture Indicated? NO (NO)
[2017-09-12 13:40] LABS: Thyroid Stimulating Hormone 4.557 mcIU/mL (0.340-5.600)
--- NOTE | 2017-09-12 14:15 | Internal Med History&Physical ---
Date of Encounter: 09/12/17 Time of Encounter: 02:15 Internal Medicine - H&P: HPI Admitted From: Emergency Dept Plans for Post Hospital Care: Home History of present illness: Mr. 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 Pt presents with complaint of chest pain. Pt states years ago he had a nervous break down and was diagnosed with anxiety. His physician prescribed him Imipramine. States while he was on it he was having dizzy spells and other symptoms and could not tolerate. He physician switched him to Lexapro. Over the years, Lexapro resulted in sexual side effects so that was stopped and he was switched to Wellbutrin. States he could not tolerate again so he decided to stop his meds for about 3 days, then he went back to Lexapro for 3 weeks and started developed severe insomnia. Pt states about 4 weeks ago he started to notice he was having sexual side effects again. He admitted himself to psych floor 1A a week and a half ago and he was prescribed Trazodone. States Trazodone helped initially and he slept for a few days but then was unable to sleep again. Reports that he was initially started o Trazodone 50 mg, but was then increased to 100mg yet he was not able to sleep. Hydroxyzine was then added to the regimen . He would sleep for a few hours and then wake up and was restless. Reports that he has a number of stressors in his life recently, his 11 year olf on lives 1hr 30mins from his home in [place] and his daughter lives in [place]. His job was also 45 minutes away from home. He is on the road for multiple hours. He states he takes lexapro in the morning, then hydroxyzine, then trazodone, and if it does help takes another dose of hydroxyzine, and may take Benadryl. He had a small about of beer this morning and developed palpitations and chest pain. States it scared him and his father had to drive him to the hospital. In ED WBC 8.4, hg 14.6, hct 45.8, plt j299. PT 9.2, INR 0.9. Troponin <0.03, TSH 4.557. NA 141, K 3.3, BUN 17, Cr 0.84. Chest x ray IMPRESSION: no acute process. Past Med Surg Social Fam HX - Past Medical History Medical history: GERD, hypertension, migraine, thyroid disease Additional medical history: sleep apnea Psychiatric history: anxiety, depression - Past Surgical History Surgical History: appendectomy Additional surgical history: left bicep. cystoscopy. colonoscopy - Social History Smoking Status: Former smoker Smokeless Tobacco Status: No Alcohol use: occasionally Drug use: none - Family History Mother Living Status: Still Living Father Living Status: Still Living Hx Family Cardiac Disorders: Yes (HTN) Hx Family Cancer: Yes (Brain cancer) Brother Living Status: Still Living Hx Family Cardiac Disorders: Yes (heart disease) Internal Medicine - H&P: Meds Escitalopram [Lexapro] 20 mg PO DAILY 09/03/17 [History] Esomeprazole Magnesium [Nexium] 40 mg PO DAILY 09/03/17 [History] Losartan Potassium [Cozaar] 100 mg PO DAILY 09/03/17 [History] hydrOXYzine HCl [Hydroxyzine HCl] 50 mg PO HS 09/03/17 [History] hydroCHLOROthiazide [Hydrochlorothiazide] 25 mg PO DAILY 09/03/17 [History] traZODone [TraZODone] 50 mg PO HS PRN #30 tablet 09/05/17 [Rx] 3 Allergy/AdvReac Type Severity Reaction Status Date / Time Penicillins [PCN] Allergy Anaphylaxis Verified 09/03/17 12:12 acetaminophen [From Vicodin] AdvReac Agitated Verified 09/03/17 13:41 hydrocodone [From Vicodin] AdvReac Agitated Verified 09/03/17 13:41 All Systems PM: A 10-system review of systems was performed and is negative for pertinent findings except as documented above in the HPI. - Constitutional Vitals: Temp Pulse Resp BP Pulse Ox 0 F L 94 18 146/88 97 09/12/17 09:55 09/12/17 11:39 09/12/17 11:39 09/12/17 11:39 09/12/17 11:39 General appearance: Present: A&O X 3, no acute distress - Head Head exam: Present: atraumatic, normocephalic - Eye Eye exam: Present: PERRL, conjuntiva pink, sclera anicteric Pupils: Present: PERRL - Neck Neck exam general surgery: Present: supple, trachea midline. Absent: lymphadenopathy - Respiratory Respiratory exam: Present: CTAB. Absent: accessory muscle use, rales, rhonchi, wheezes - Cardiovascular Cardiovascular exam: Present: RRR, +S1, +S2. Absent: diastolic murmur, gallop, rubs, systolic murmur - GI/Abdominal GI/Abdominal exam: Present: normal bowel sounds, soft, no peritoneal signs. Absent: distended, tenderness - Extremities Exam Extremities exam: Present: warm, radial pulses palpable and symmetrical. Absent : calf tenderness, cyanotic, pedal edema - Neurological Exam Neurological exam: Present: CN II-XII intact, oriented X3, no focal deficits. Absent: pronater drift, facial droop, speech deficit - Skin Skin exam: Present: dry, intact Internal Med - H&P Results - Labs CBC & Chem 7: 09/12/17 10:05 09/12/17 10:05 - Assessment and plan (1) Chest pain, rule out acute myocardial infarction Current Visit: Yes Status: Acute Assessment and plan: Likely due to palpitations from medication interaction. Initial troponin <0.03. EKG neg. Chest x ray no acute process. Will cycle troponin. Aspirin daily, Nitro SL, oxygen prn. Will check Echo (2) Anxiety Current Visit: Yes Status: Acute Assessment and plan: Lexapro (3) Hypertension Current Visit: No Status: Acute Assessment and plan: HCTZ Qualifiers: Hypertension type: unspecified Qualified Code(s): I10 - Essential (primary ) hypertension (4) Severe recurrent major depression without psychotic features Current Visit: No Status: Acute Assessment and plan: Will resume Lexapro (5) Insomnia Current Visit: Yes Status: Acute Assessment and plan: Will hold Trazodone and Hydroxyzine for now. Will start on Remeron 7.5 mg QHS. Remeron at higher doses can increase appetite so will make pt aware. Will consider adding Seroquel instead of titrating Remeron up but will first get baseline EKG. Qualifiers: Qualified Code(s): G47.00 - Insomnia, unspecified (6) Heart palpitations Current Visit: Yes Status: Acute Assessment and plan: Likely due to combination of Hydroxyzine and Benadryl. Will DC Hydroxyzine and pt is not to take Benadryl for now. - Time Spent With Patient Total time spent is greater than 50% in coordination of care (as documented) at patient's floor/unit and/or counseling patient: 25 - 35 minutes
[2017-09-12] MEDS ORDERED: traZODone 50 MG TABLET PO PRN (14:57)
[2017-09-12] MEDS ORDERED: Nitroglycerin 0.4 MG TAB.SUBL SL PRN (15:22)
[2017-09-12 16:12] LABS: Amphetamine Screen,Urine Negative ng/mL (Cutoff=1000); Barbiturate Screen,Urine Negative ng/mL (Cutoff=200); Benzodiazepines Screen,Urine Negative ng/mL (Cutoff=200); Cannabinoid Screen,Urine Negative ng/mL (Cutoff = 50); Cocaine Screen,Urine Negative ng/mL (Cutoff= 300); Opiate Screen,Urine Negative ng/mL (Cutoff=300); Phencyclidine Screen,Urine Negative ng/mL (Cutoff=25)
[2017-09-12] MEDS ORDERED: Mirtazapine 15 MG TABLET PO SCH (21:00)
[2017-09-13 08:12] VITALS: BP 154/95
--- NOTE | 2017-09-13 08:14 | Discharge Summary ---
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 Patient notes he had been taking multiple medications for insomnia including benadryl, hydroxyzine and trazodone. He had troponins and an echo done which came back WNL. He was counseled to stop combining multiple anti histamines and trazodone as this may have caused his palpitations and follow up with his PCP. He was discharged in a stable condition (2) Heart palpitations Priority: Secondary Status: Acute Hospital course: Mr. Harrington is a 42 year old male - Time Spent with Patient Total time spent providing and/or coordinating discharge services: - Discharge Medications Home Medications: Escitalopram [Lexapro] 20 mg PO DAILY 09/03/17 [History] Esomeprazole Magnesium [Nexium] 40 mg PO DAILY 09/03/17 [History] Losartan Potassium [Cozaar] 100 mg PO DAILY 09/03/17 [History] hydrOXYzine HCl [Hydroxyzine HCl] 50 mg PO HS 09/03/17 [History] hydroCHLOROthiazide [Hydrochlorothiazide] 25 mg PO DAILY 09/03/17 [History] traZODone [TraZODone] 50 mg PO HS PRN #30 tablet 09/05/17 [Rx] Allergies/Adverse Reactions: 3 Allergy/AdvReac Type Severity Reaction Status Date / Time Penicillins [PCN] Allergy Anaphylaxis Verified 09/03/17 12:12 acetaminophen [From Vicodin] AdvReac Agitated Verified 09/03/17 13:41 hydrocodone [From Vicodin] AdvReac Agitated Verified 09/03/17 13:41 Date of admission: 09/12/17 12:37 Primary care physician: Rekha Tellez, - Constitutional Vitals: Temp Pulse Resp BP Pulse Ox 97.9 F 82 18 140/77 96 09/13/17 04:10 09/13/17 04:10 09/13/17 04:10 09/13/17 04:10 09/13/17 04:10 General appearance: Present: A&O X 3, no acute distress - Head Head exam: Present: atraumatic, normocephalic - Eye Eye exam: Present: PERRL, conjuntiva pink, sclera anicteric Pupils: Present: PERRL - Neck Neck exam general surgery: Present: supple, trachea midline. Absent: lymphadenopathy - Respiratory Respiratory exam: Present: CTAB. Absent: accessory muscle use, rales, rhonchi, wheezes - Cardiovascular Cardiovascular exam: Present: RRR, +S1, +S2. Absent: diastolic murmur, gallop, rubs, systolic murmur - GI/Abdominal GI/Abdominal exam: Present: normal bowel sounds, soft, no peritoneal signs. Absent: distended, tenderness - Extremities Exam Extremities exam: Present: warm, radial pulses palpable and symmetrical. Absent : calf tenderness, cyanotic, pedal edema - Neurological Exam Neurological exam: Present: CN II-XII intact, oriented X3, no focal deficits. Absent: pronater drift, facial droop, speech deficit - Skin Skin exam: Present: dry, intact - Patient Status Disposition: Home, Self-Care Condition: Fair - Discharge Instructions Instructions: Chest Pain (DC), Anxiety (DC) Follow Up With: Rekha Tellez DO [Primary Care Provider] - 09/20/17 10:15 am (Please follow up as schedule....)
[2017-09-13] MEDS ORDERED: Potassium Chloride Elixir 20 MEQ/15 ML UDC PO SCH (08:15)
[2017-09-13] MEDS ORDERED: *HR* LORazepam 2 MG/ML VIAL IVP PRN (08:27)
[2017-09-13] MEDS ORDERED: hydroCHLOROthiazide 25 MG TABLET PO SCH (09:00)
[2017-09-13] MEDS ORDERED: Aspirin 81 MG TAB.CHEW PO SCH (09:00)
--- NOTE | 2017-09-13 17:17 | Electrocardiograph Report ---
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
== END 2017-09-13 11:37 | disposition home or self-care (01) ==
LOC: EMEROO 09:52 → 2ANU 09:52
PROVIDERS: ADMIT Internal Medicine; ATTEND Family Medicine

== ENCOUNTER 2017-09-27 16:50 | Inpatient (IN) ==
[2017-09-27 17:30] LABS: Basophils % 0.3 %; Eosinophils # 0.1 K/mcL (0.0-0.6); Hematocrit 45.3 % (37.5-50.1); Hemoglobin 14.7 g/dL (12.9-16.9); Immature Granulocytes % 0.3 % (0-4); Lymphocytes # 2.5 K/mcL (0.6-4.6); Lymphocytes % 31.9 %; Mean Corpuscular HGB Conc 32.5 g/dL (31.6-35.5); Mean Corpuscular Hemoglobin 26.6 pg (28.0-33.3); Mean Corpuscular Volume 81.9 fL (83.0-100.0); Mean Platelet Volume 9.2 fL (9.4-12.4); Monocytes # 0.6 K/mcL (0.0-1.3); Monocytes % 7.5 %; Neutrophils # 4.7 K/mcL (1.6-8.9); Platelet Count 381 K/mcL (140-400); Red Blood Count 5.53 M/mcL (4.19-5.50); Red Cell Distribution Width 13.5 % (11.5-14.5)
[2017-09-27 17:32] LABS: Bilirubin,Urine Negative (Negative); Blood,Urine Negative (Negative); Clarity,Urine Clear (Clear); Color,Urine Yellow (Yellow); Glucose,Urine (UA) Normal (Normal); Ketones,Urine Negative (Negative); Leukocyte Esterase,Urine Negative (Negative); Nitrite,Urine Negative (Negative); Protein,Urine Negative (Neg-Trace); Specific Gravity,Urine 1.015 (1.010-1.025); Urobilinogen,Urine Normal (Normal)
--- NOTE | 2017-09-27 17:32 | Emergency Department Note ---
Disposition Clinical Impression: Depression, Suicidal ideation Disposition: Admitted As Inpatient Condition: Good General Adult HPI - General Chief complaint: ED Psychiatric Symptoms Stated complaint: SI Source: patient Limitations: no limitations Nursing Notes Reviewed: Yes Vital Signs Reviewed: Yes - History of Present Illness HPI Narrative: Patient presents with suicidal ideation patient does have a history of depression and has tried medications: Trazodone and Cymbalta and symptoms have recently worsened. Does have a plan to take sleeping pills to end his life. No visual or auditory hallucinations. No history of suicide attempt. Social history: No smoking, alcohol, drugs. Does live at home with his parents. Does have a job at [employer] Pain Scale: 0 - Related Data Home Medications Medication Instructions Recorded Confirmed Esomeprazole Magnesium [Nexium] 40 mg PO DAILY 09/03/17 09/27/17 Losartan Potassium [Cozaar] 100 mg PO DAILY 09/03/17 09/27/17 hydroCHLOROthiazide 25 mg PO DAILY 09/03/17 09/27/17 [Hydrochlorothiazide] Previous Rx's Medication Instructions Recorded Imipramine HCl [Tofranil] 50 mg PO HS #30 tablet 10/03/17 [place] Carbonate 300 mg PO DAILY #30 capsule 10/03/17 [place] Carbonate 600 mg PO HS #30 capsule 10/03/17 OLANZapine [Zyprexa Zydis] 5 mg PO QPM #30 tab.rapdis 10/03/17 clonazePAM [Klonopin] 0.5 mg PO BID PRN 30 Days #60 10/03/17 tablet hydroCHLOROthiazide 25 mg PO DAILY tablet 10/03/17 [Hydrochlorothiazide] Allergies Allergy/AdvReac Type Severity Reaction Status Date / Time Penicillins [PCN] Allergy Anaphylaxis Verified 09/03/17 12:12 hydrocodone [From Vicodin] AdvReac Chest Pain Verified 09/27/17 20:48 Review of Systems: Constitutional: No fever Vision: No blurred vision ENT: No rhinorrhea Respiratory: No cough Allergic: No allergies : No blood in urine GI: No blood in stool Hematologic: No bruising Dermatologic: No skin rash Musculoskeletal: No pain in the extremities Neuro: No numbness of the extremities Past Medical History - Past Medical History Medical history: Reports: GERD, hypertension, migraine, thyroid disease Surgical history: Reports: appendectomy Psychiatric history: Reports: anxiety, depression - Social History Smoking Status: Former smoker Smokeless Tobacco Status: No Alcohol use: Reports: occasionally Drug use: Reports: none Physical Exam CONSTITUTIONAL: Alert and oriented X3, well-nourished, well appearing, in no apparent distress HEAD: Normocephalic; atraumatic. EYES: PERRL, no scleral icterus. NOSE: The nose is normal in appearance without rhinorrhea RESP: Normal chest excursion with respiration; breath sounds clear and equal bilaterally; no wheezes, rhonchi, or rales CARD: Regular rhythm, without murmurs, rub or gallop ABD: Non-distended; non-tender, soft,without rigidity, rebound or guarding SKIN: Normal for age and race; warm and dry; no apparent lesions - General Limitations: no limitations General appearance: alert, in no apparent distress Course Vital Signs Temperature 98.0 F 09/27/17 16:51 Pulse Rate 88 09/27/17 16:51 Respiratory Rate 16 09/27/17 16:51 Blood Pressure 172/113 09/27/17 16:51 O2 Sat by Pulse Oximetry 98 09/27/17 16:51 Temperature 98.2 F 10/03/17 09:00 Pulse Rate 111 10/03/17 09:00 Respiratory Rate 16 10/03/17 09:00 Blood Pressure 127/94 10/03/17 09:00 O2 Sat by Pulse Oximetry 98 09/27/17 18:58 Oxygen Delivery Oxygen Delivery Room Air Medical Decision Making - MDM Narrative Medical decision making narrative: The patient is able to give a good history. He does appear sad in appearance. Is breathing comfortably and skin color is good. Labs are pending and psychiatric services will be consulted. 1731 I did review the patient's labs without acute abnormality. The 1A - services called and we will await their recommendations care will be transitioned to the night team at change of shift. Patient will be seen by psychiatry sometime after 7:00 1756. - Medical Records Medical records reviewed: Yes I reviewed the patient's medical records. - Lab Data Lab results reviewed: Yes I reviewed the patient's lab results. Result diagrams: 10/02/17 08:03 10/02/17 08:03 Lab Results 09/27/17 09/27/17 09/27/17 Range/Units 17:10 17:10 17:13 WBC 7.9 (4.3-11.1) K/mcL RBC 5.53 H (4.19-5.50) M/mcL Hgb 14.7 (12.9-16.9) g/dL Hct 45.3 (37.5-50.1) % MCV 81.9 L (83.0-100.0) fL MCH 26.6 L (28.0-33.3) pg MCHC 32.5 (31.6-35.5) g/dL RDW 13.5 (11.5-14.5) % Plt Count 381 (140-400) K/mcL MPV 9.2 L (9.4-12.4) fL Immature Gran % 0.3 (0-4) % Seg Neutrophils % 59.0 % Lymphocytes % 31.9 % Monocytes % 7.5 % Eosinophils % 1.0 % Basophils % 0.3 % Neutrophils # 4.7 (1.6-8.9) K/mcL Lymphocytes # 2.5 (0.6-4.6) K/mcL Monocytes # 0.6 (0.0-1.3) K/mcL Eosinophils # 0.1 (0.0-0.6) K/mcL Basophils # 0.0 (0.0-0.2) K/mcL Sodium 139 (136-145) mEq/L Potassium 4.1 (3.5-5.1) mEq/L Chloride 104 (98-107) mEq/L Carbon Dioxide 30 H (23-29) mEq/L BUN 11 (6-20) mg/dL Creatinine 0.78 (0.70-1.30) mg/dL Est GFR ( Amer) > 60 (> 60) Est GFR (Non-Af Amer) > 60 (> 60) BUN/Creatinine Ratio 14 (6-26) Glucose 105 (70-105) mg/dL Calculated Osmolality 288 (280-300) Calcium 10.3 (8.6-10.3) mg/dL Urine Color Yellow (Yellow) Urine Clarity Clear (Clear) Urine pH 6.0 (5.0-8.0) pH Units Ur Specific [place] 1.015 (1.010-1.025) Urine Protein Negative (Neg-Trace) mg/dL Urine Glucose (UA) Normal (Normal) mg/dL Urine Ketones Negative (Negative) mg/dL Urine Blood Negative (Negative) Urine Nitrite Negative (Negative) Urine Bilirubin Negative (Negative) Urine Urobilinogen Normal (Normal) mg/dL Ur Leukocyte Esterase Negative (Negative) Salicylates < 2.5 L (15.0-30.0) mg/dL Urine Opiates Screen (Eoocym=219) ng/mL Acetaminophen < 10 L (10-20) mcg/mL Ur Barbiturates Screen (Stdwun=548) ng/mL Ur Phencyclidine Scrn (Cutoff=25) ng/mL Ur Amphetamines Screen (Mqdplq=9775) ng/mL U Benzodiazepines Scrn (Sujnkz=349) ng/mL Urine Cocaine Screen (Cutoff= 300) ng/mL U Marijuana (THC) Screen (Cutoff = 50) ng/mL Ethyl Alcohol < 10 (Less than 10) mg/dL 09/27/17 Range/Units 17:13 WBC (4.3-11.1) K/mcL RBC (4.19-5.50) M/mcL Hgb (12.9-16.9) g/dL Hct (37.5-50.1) % MCV (83.0-100.0) fL MCH (28.0-33.3) pg MCHC (31.6-35.5) g/dL RDW (11.5-14.5) % Plt Count (140-400) K/mcL MPV (9.4-12.4) fL Immature Gran % (0-4) % Seg Neutrophils % % Lymphocytes % % Monocytes % % Eosinophils % % Basophils % % Neutrophils # (1.6-8.9) K/mcL Lymphocytes # (0.6-4.6) K/mcL Monocytes # (0.0-1.3) K/mcL Eosinophils # (0.0-0.6) K/mcL Basophils # (0.0-0.2) K/mcL Sodium (136-145) mEq/L Potassium (3.5-5.1) mEq/L Chloride (98-107) mEq/L Carbon Dioxide (23-29) mEq/L BUN (6-20) mg/dL Creatinine (0.70-1.30) mg/dL Est GFR ( Amer) (> 60) Est GFR (Non-Af Amer) (> 60) BUN/Creatinine Ratio (6-26) Glucose (70-105) mg/dL Calculated Osmolality (280-300) Calcium (8.6-10.3) mg/dL Urine Color (Yellow) Urine Clarity (Clear) Urine pH (5.0-8.0) pH Units Ur Specific [place] (1.010-1.025) Urine Protein (Neg-Trace) mg/dL Urine Glucose (UA) (Normal) mg/dL Urine Ketones (Negative) mg/dL Urine Blood (Negative) Urine Nitrite (Negative) Urine Bilirubin (Negative) Urine Urobilinogen (Normal) mg/dL Ur Leukocyte Esterase (Negative) Salicylates (15.0-30.0) mg/dL Urine Opiates Screen Negative (Unbgfd=423) ng/mL Acetaminophen (10-20) mcg/mL Ur Barbiturates Screen Negative (Ztfxlf=951) ng/mL Ur Phencyclidine Scrn Negative (Cutoff=25) ng/mL Ur Amphetamines Screen Negative (Rpcauz=0435) ng/mL U Benzodiazepines Scrn Negative (Fsprhk=506) ng/mL Urine Cocaine Screen Negative (Cutoff= 300) ng/mL U Marijuana (THC) Screen Negative (Cutoff = 50) ng/mL Ethyl Alcohol (Less than 10) mg/dL
[2017-09-27 17:49] LABS: Acetaminophen < 10 mcg/mL (10-20); BUN/Creatinine Ratio 14 (6-26); Blood Urea Nitrogen 11 mg/dL (6-20); Calcium 10.3 mg/dL (8.6-10.3); Carbon Dioxide 30 mEq/L (23-29); Chloride 104 mEq/L (98-107); Ethanol < 10 mg/dL (Less than 10); Glucose 105 mg/dL (70-105); Osmolality,Calculated 288 (280-300); Potassium 4.1 mEq/L (3.5-5.1); Salicylate < 2.5 mg/dL (15.0-30.0); Sodium 139 mEq/L (136-145); eGFR For African Americans > 60 (> 60); eGFR For Non-African Americans > 60 (> 60)
[2017-09-27 17:58] LABS: Amphetamine Screen,Urine Negative ng/mL (Cutoff=1000); Barbiturate Screen,Urine Negative ng/mL (Cutoff=200); Benzodiazepines Screen,Urine Negative ng/mL (Cutoff=200); Cannabinoid Screen,Urine Negative ng/mL (Cutoff = 50); Cocaine Screen,Urine Negative ng/mL (Cutoff= 300); Opiate Screen,Urine Negative ng/mL (Cutoff=300); Phencyclidine Screen,Urine Negative ng/mL (Cutoff=25)
--- NOTE | 2017-09-27 18:52 | Emergency Department Note ---
Disposition Clinical Impression: Suicidal ideation Depression Qualifiers: Depression Type: unspecified Qualified Code(s): F32.9 - Major depressive disorder, single episode, unspecified Disposition: Admitted As Inpatient Condition: Good Referrals: NONE,PCP [Primary Care Provider] - Forms: ED Satisfaction Letter Time of Disposition: 21:31 Psych HPI - General Chief Complaint: ED Psychiatric Symptoms Stated Complaint: SI Source: patient Nursing Notes Reviewed: Yes Vital Signs Reviewed: Yes - Related Data Home Medications Medication Instructions Recorded Confirmed Escitalopram [Lexapro] 20 mg PO DAILY 09/03/17 09/12/17 Esomeprazole Magnesium [Nexium] 40 mg PO DAILY 09/03/17 09/27/17 Losartan Potassium [Cozaar] 100 mg PO DAILY 09/03/17 09/27/17 hydroCHLOROthiazide 25 mg PO DAILY 09/03/17 09/27/17 [Hydrochlorothiazide] Quetiapine Fumarate [Seroquel] 100 mg PO HS 09/27/17 09/27/17 Previous Rx's Medication Instructions Recorded traZODone [TraZODone] 50 mg PO HS PRN #30 tablet 09/05/17 Allergies Allergy/AdvReac Type Severity Reaction Status Date / Time Penicillins [PCN] Allergy Anaphylaxis Verified 09/03/17 12:12 hydrocodone [From Vicodin] AdvReac Chest Pain Verified 09/27/17 20:48 Past Medical History - Past Medical History Medical history: Reports: GERD, hypertension, migraine, thyroid disease Surgical history: Reports: appendectomy Psychiatric history: Reports: anxiety, depression - Social History Smoking Status: Former smoker Smokeless Tobacco Status: No Alcohol use: Reports: occasionally Drug use: Reports: none Physical Exam - General Limitations: no limitations General appearance: alert, in no apparent distress Course Course Narrative: This patient was signed out to me at shift change from Dr. Romero. Please refer to his note for complete details of the history and physical examination. At shift change the patient has been medically cleared and is awaiting psychiatric evaluation for suicidal ideations. - Consultations Consultation #1: Patient was evaluated in the emergency department by the [address] psychiatry department and is being admitted to the [address] psychiatric unit. Time: 21:30 Vital Signs Temperature 98.0 F 09/27/17 16:51 Pulse Rate 88 09/27/17 16:51 Respiratory Rate 16 09/27/17 16:51 Blood Pressure 172/113 09/27/17 16:51 O2 Sat by Pulse Oximetry 98 09/27/17 16:51 Temperature 98.0 F 09/27/17 17:13 Pulse Rate 84 09/27/17 18:58 Respiratory Rate 14 09/27/17 18:58 Blood Pressure 172/102 09/27/17 18:58 O2 Sat by Pulse Oximetry 98 09/27/17 18:58 Oxygen Delivery Oxygen Delivery Room Air Psych - Lab Data Lab results reviewed: Yes I reviewed the patient's lab results. Result diagrams: 09/27/17 17:10 09/27/17 17:10 Lab Results 09/27/17 09/27/17 09/27/17 Range/Units 17:10 17:10 17:13 WBC 7.9 (4.3-11.1) K/mcL RBC 5.53 H (4.19-5.50) M/mcL Hgb 14.7 (12.9-16.9) g/dL Hct 45.3 (37.5-50.1) % MCV 81.9 L (83.0-100.0) fL MCH 26.6 L (28.0-33.3) pg MCHC 32.5 (31.6-35.5) g/dL RDW 13.5 (11.5-14.5) % Plt Count 381 (140-400) K/mcL MPV 9.2 L (9.4-12.4) fL Immature Gran % 0.3 (0-4) % Seg Neutrophils % 59.0 % Lymphocytes % 31.9 % Monocytes % 7.5 % Eosinophils % 1.0 % Basophils % 0.3 % Neutrophils # 4.7 (1.6-8.9) K/mcL Lymphocytes # 2.5 (0.6-4.6) K/mcL Monocytes # 0.6 (0.0-1.3) K/mcL Eosinophils # 0.1 (0.0-0.6) K/mcL Basophils # 0.0 (0.0-0.2) K/mcL Sodium 139 (136-145) mEq/L Potassium 4.1 (3.5-5.1) mEq/L Chloride 104 (98-107) mEq/L Carbon Dioxide 30 H (23-29) mEq/L BUN 11 (6-20) mg/dL Creatinine 0.78 (0.70-1.30) mg/dL Est GFR ( Amer) > 60 (> 60) Est GFR (Non-Af Amer) > 60 (> 60) BUN/Creatinine Ratio 14 (6-26) Glucose 105 (70-105) mg/dL Calculated Osmolality 288 (280-300) Calcium 10.3 (8.6-10.3) mg/dL Urine Color Yellow (Yellow) Urine Clarity Clear (Clear) Urine pH 6.0 (5.0-8.0) pH Units Ur Specific [place] 1.015 (1.010-1.025) Urine Protein Negative (Neg-Trace) mg/dL Urine Glucose (UA) Normal (Normal) mg/dL Urine Ketones Negative (Negative) mg/dL Urine Blood Negative (Negative) Urine Nitrite Negative (Negative) Urine Bilirubin Negative (Negative) Urine Urobilinogen Normal (Normal) mg/dL Ur Leukocyte Esterase Negative (Negative) Salicylates < 2.5 L (15.0-30.0) mg/dL Urine Opiates Screen (Lsygyr=135) ng/mL Acetaminophen < 10 L (10-20) mcg/mL Ur Barbiturates Screen (Qqonpi=685) ng/mL Ur Phencyclidine Scrn (Cutoff=25) ng/mL Ur Amphetamines Screen (Tkscgs=7285) ng/mL U Benzodiazepines Scrn (Ledpgh=341) ng/mL Urine Cocaine Screen (Cutoff= 300) ng/mL U Marijuana (THC) Screen (Cutoff = 50) ng/mL Ethyl Alcohol < 10 (Less than 10) mg/dL 09/27/17 Range/Units 17:13 WBC (4.3-11.1) K/mcL RBC (4.19-5.50) M/mcL Hgb (12.9-16.9) g/dL Hct (37.5-50.1) % MCV (83.0-100.0) fL MCH (28.0-33.3) pg MCHC (31.6-35.5) g/dL RDW (11.5-14.5) % Plt Count (140-400) K/mcL MPV (9.4-12.4) fL Immature Gran % (0-4) % Seg Neutrophils % % Lymphocytes % % Monocytes % % Eosinophils % % Basophils % % Neutrophils # (1.6-8.9) K/mcL Lymphocytes # (0.6-4.6) K/mcL Monocytes # (0.0-1.3) K/mcL Eosinophils # (0.0-0.6) K/mcL Basophils # (0.0-0.2) K/mcL Sodium (136-145) mEq/L Potassium (3.5-5.1) mEq/L Chloride (98-107) mEq/L Carbon Dioxide (23-29) mEq/L BUN (6-20) mg/dL Creatinine (0.70-1.30) mg/dL Est GFR ( Amer) (> 60) Est GFR (Non-Af Amer) (> 60) BUN/Creatinine Ratio (6-26) Glucose (70-105) mg/dL Calculated Osmolality (280-300) Calcium (8.6-10.3) mg/dL Urine Color (Yellow) Urine Clarity (Clear) Urine pH (5.0-8.0) pH Units Ur Specific [place] (1.010-1.025) Urine Protein (Neg-Trace) mg/dL Urine Glucose (UA) (Normal) mg/dL Urine Ketones (Negative) mg/dL Urine Blood (Negative) Urine Nitrite (Negative) Urine Bilirubin (Negative) Urine Urobilinogen (Normal) mg/dL Ur Leukocyte Esterase (Negative) Salicylates (15.0-30.0) mg/dL Urine Opiates Screen Negative (Bgbqwb=415) ng/mL Acetaminophen (10-20) mcg/mL Ur Barbiturates Screen Negative (Xjkhaz=718) ng/mL Ur Phencyclidine Scrn Negative (Cutoff=25) ng/mL Ur Amphetamines Screen Negative (Jccpty=6423) ng/mL U Benzodiazepines Scrn Negative (Hubugf=933) ng/mL Urine Cocaine Screen Negative (Cutoff= 300) ng/mL U Marijuana (THC) Screen Negative (Cutoff = 50) ng/mL Ethyl Alcohol (Less than 10) mg/dL Psychiatric Medical Clearance - Medical Clearance Checklist Does the patient have a NEW psychiatric condition?: No Any abnormalities indicating possible medical illness?: No Any history of medical issues?: Yes (Hypertension) Medical History: No Social History Section defined Current Vitals: Last Vital Signs Temp 98.0 F 09/27/17 17:13 Pulse 84 09/27/17 18:58 Resp 14 06/22/18 18:58 BP 172/102 09/27/17 18:58 Pulse Ox 98 09/27/17 18:58 Is the patient intoxicated or cognitively impaired?: No Psychiatric Lab Panel: Drug Levels and Toxicity 09/27/17 09/27/17 17:10 17:13 Urine Opiates Screen Negative Acetaminophen < 10 L Ur Barbiturates Screen Negative Ur Phencyclidine Scrn Negative Ur Amphetamines Screen Negative U Benzodiazepines Scrn Negative Urine Cocaine Screen Negative U Marijuana (THC) Screen Negative Ethyl Alcohol < 10 Any abnormalities on the physical exam?: No Any abnormal labs?: No Abnormal Labs: Abnormal lab results RBC 5.53 M/mcL (4.19-5.50) H 09/27/17 17:10 MCV 81.9 fL (83.0-100.0) L 09/27/17 17:10 MCH 26.6 pg (28.0-33.3) L 09/27/17 17:10 MPV 9.2 fL (9.4-12.4) L 09/27/17 17:10 Carbon Dioxide 30 mEq/L (23-29) H 09/27/17 17:10 Salicylates < 2.5 mg/dL (15.0-30.0) L 09/27/17 17:10 Acetaminophen < 10 mcg/mL (10-20) L 09/27/17 17:10 Does the patient require durable medical equiptment?: No Is the patient ambulatory?: Yes Is the patient a fall risk?: No Has the patient been medically cleared?: Yes Any acute medical condition require Tx prior to transfer?: No Statement of Medical Clearance: I have evaluated the patient, reviewed diagnostic information, and certify that the patient's medical condition is sufficiently stable that transfer to the psychiatric unit does not pose a significant risk of deterioration.
[2017-09-27] MEDS ORDERED: *HR* LORazepam 1 MG TABLET PO ONE (19:00)
[2017-09-27] MEDS ORDERED: Haloperidol Lactate 5 MG/ML VIAL IM PRN (22:02)
[2017-09-27] MEDS ORDERED: *HR* LORazepam 2 MG/ML VIAL IM PRN (22:02)
[2017-09-27] MEDS ORDERED: Mag Hydrox/Al Hydrox/Simeth 30 ML UDC PO PRN (22:02)
[2017-09-27] MEDS ORDERED: MOM Conc 10 ML UD.LIQ PO PRN (22:02)
[2017-09-27] MEDS: hydrOXYzine pamoate 25 MG CAPSULE PO PRN (23:15)
[2017-09-28] MEDS: Lithium Carbonate 300 MG CAPSULE PO SCH ×2 (00:50→20:42)
--- NOTE | 2017-09-28 12:25 | Psychiatry History & Physical ---
Date of Encounter: 09/28/17 Time of Encounter: 11:37 History of Present Illness Patient Stated Chief Complaint: i am not doing well. Medicare Admission Attestation: For traditional Medicare patients the provided hospital inpatient services are reasonable and necessary and in the case of services not specified as inpatient -only under 42 CFR 419.22 (n), that they are appropriately provided as inpatient services in accordance 42 CFR 412.3. For Critical Access Hospital the patient may reasonably be expected to be discharged or transferred to a hospital within 96 hours after admission to the Critical Access Hospital. Admitted From: Emergency Dept Plans for Post Hospital Care: Home History of Present Illness: Mr. Harrington is a 42 year old male was admitted from ED for depression and suicidal ideation . He is lives with family and has h/o depression and anxiety and in treatment for more than 20 yrs. He states i got in january last year and since then i am having thoughts that i have committed adultery and i will go to hell and i can not take that thought out of my mind and i am very depress and reading bible states he became suicidal and had plan to take bunch of medicine and sleep. I can not shut that thought off. he states the scripture does not say that but i see it and i can not be single as i like being . 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 Patient has been tried multiple medications in last recent year and had not seen psychiatrist. he is preoccupied with his thought and feels impending doom and feels hopeless. , excessive guilt, worthless and like if i had tried harder with his first marriage and not get divorce and now and feels committing adultery. patient has racing thoughts, preoccupation with his thoughts , mood swings, difficulty concenteration , suicidal thoughts. i can not look any body as that is sin to and it is overwhelming. he has not been taking his medication as he was supposed to because of insomnia and sexual side effects. he gives h/o racing thougts , mood swings and promiscus behaviors , spending sprees , impulsive. Past Psych He states 20 yrs ago he had an episode of mental break down and he was given imipramine and klonopin and slowly and gradually got better and did well on it for 4 years then took self off as did so good for 4 years but then restarted medications as was and stressed and did well on ssri , he has tried paxil , lexapro and others but did not liked sexual side effects. he has one psych inpatient when 31 years old for depression as was going thru divorce. he states he was started seroquel recently as his brother is bipolar and he takes that so my doctor started me on it , it makes me feel like drunk all day. he was started lithium last night. Substance use denies any Family h/o bipolar and depression , brother and nephew bipolar. social h/o x3 , has one adapted son and one daughter from second marriage , employed at [employer]. At present patient is depress, delusional and preoccuapation and suicidal plan d/w hm and medications side effects d/w patient and informed consent obtained. need inpATIENT STABILIZATION FOR SAFETY AND treatment. Past Med Surg Social Fam HX - Past Medical History Medical history: GERD, hypertension, migraine, thyroid disease - Past Psychiatric History Psychiatric history: Reports: anxiety, depression, previous psychiatric hospitalization Family psychiatric history: Yes Family History of Suicide: None - Past Surgical History Surgical History: appendectomy - Social History Smoking Status: Former smoker Smokeless Tobacco Status: No Alcohol use: occasionally Drug use: none - Family History Mother Living Status: Still Living Father Living Status: Still Living Hx Family Cardiac Disorders: Yes (HTN) Hx Family Cancer: Yes (Brain cancer) Brother Living Status: Still Living Hx Family Cardiac Disorders: Yes (heart disease) Medications & Allergies Escitalopram [Lexapro] 20 mg PO DAILY 09/03/17 [History] Esomeprazole Magnesium [Nexium] 40 mg PO DAILY 09/03/17 [History] Losartan Potassium [Cozaar] 100 mg PO DAILY 09/03/17 [History] hydroCHLOROthiazide [Hydrochlorothiazide] 25 mg PO DAILY 09/03/17 [History] traZODone [TraZODone] 50 mg PO HS PRN #30 tablet 09/05/17 [Rx] Quetiapine Fumarate [Seroquel] 100 mg PO HS 09/27/17 [History] 3 Allergy/AdvReac Type Severity Reaction Status Date / Time Penicillins [PCN] Allergy Anaphylaxis Verified 09/03/17 12:12 hydrocodone [From Vicodin] AdvReac Chest Pain Verified 09/27/17 20:48 Review of Systems Constitutional: Denies: fever, chills, weakness, weight change Eyes: Denies: eye pain, vision change Ears, Nose, Throat: Denies: ear pain, throat pain, dental pain, hearing loss, congestion Cardiovascular: Denies: chest pain, palpitations, dyspnea on exertion Respiratory: Denies: cough, dyspnea, wheezes Gastrointestinal: Denies: abdominal pain, nausea, vomiting, diarrhea, constipation Genitourinary male: Denies: urgency, dysuria, frequency, genital lesions Musculoskeletal: Denies: joint swelling, joint pain Integumentary: Denies: rash, lesions, pruritus Neurological: Denies: headache, weakness, numbness, memory loss Psychiatric: Reports: depression, anxiety, abnormal sleep pattern, suicidal ideation, hopelessness, mood swings Endocrine: Denies: fatigue, heat or cold intolerance Hematologic/Lymphatic: Denies: easy bruising, lymphadenopathy Allergic/Immunologic: Denies: urticaria, itchy eyes Exam - HEENT Head exam IM: Present: atraumatic, normal inspection, normocephalic Eye exam IM: Present: EOMI, normal appearance, PERRL ENT exam IM: Present: normal exam - Neurological Neurological exam: Present: CN II-XII intact - Respiratory Respiratory exam IM: Present: CTAB - GI/Abdominal GI/Abdominal exam IM: Present: normal bowel sounds, soft. Absent: tenderness - Extremities Extremities exam IM: Present: full ROM - Skin Skin exam IM: Present: dry, warm - Constitutional Vitals: Temp Pulse Resp BP Pulse Ox 98.3 F 83 16 133/99 98 09/27/17 22:00 09/27/17 22:00 09/27/17 22:00 09/27/17 22:00 09/27/17 18:58 General appearance: age & developmentally appropriate, well-groomed, well- nourished - Musculoskeletal Gait: normal Station: other Strength & Tone: normal for patient - Psychiatric Patient Orientation: Yes Person, Yes Time, Yes Place Level of alertness: Alert Behavior: anxious, restless, talkative Psychomotor activity: Increased Eye Contact: Minimal Contact Mood Description: Depressed, Anxious Affect description: constricted Speech Volume: Normal Speech pattern: excessive, pressured Language & Vocabulary: consistent with education Thought Process: Racing, Slowed Thinking Thought Content: Yes Preoccupation, Yes Obsessive thoughts Attention Span Ability: Unable to Sustain Attention Memory Description: Grossly Intact Patient Reliability: Reliable Historian Fund of knowledge: Yes average Intelligence Estimate: Average Judgment: Limited Insight: Partial Results - Labs Labs: Laboratory Last Values WBC 7.9 K/mcL (4.3-11.1) 09/27/17 17:10 RBC 5.53 M/mcL (4.19-5.50) H 09/27/17 17:10 Hgb 14.7 g/dL (12.9-16.9) 09/27/17 17:10 Hct 45.3 % (37.5-50.1) 09/27/17 17:10 MCV 81.9 fL (83.0-100.0) L 09/27/17 17:10 MCH 26.6 pg (28.0-33.3) L 09/27/17 17:10 MCHC 32.5 g/dL (31.6-35.5) 09/27/17 17:10 RDW 13.5 % (11.5-14.5) 09/27/17 17:10 Plt Count 381 K/mcL (140-400) 09/27/17 17:10 MPV 9.2 fL (9.4-12.4) L 09/27/17 17:10 Immature Gran % 0.3 % (0-4) 09/27/17 17:10 Seg Neutrophils % 59.0 % 09/27/17 17:10 Lymphocytes % 31.9 % 09/27/17 17:10 Monocytes % 7.5 % 09/27/17 17:10 Eosinophils % 1.0 % 09/27/17 17:10 Basophils % 0.3 % 09/27/17 17:10 Neutrophils # 4.7 K/mcL (1.6-8.9) 09/27/17 17:10 Lymphocytes # 2.5 K/mcL (0.6-4.6) 09/27/17 17:10 Monocytes # 0.6 K/mcL (0.0-1.3) 09/27/17 17:10 Eosinophils # 0.1 K/mcL (0.0-0.6) 09/27/17 17:10 Basophils # 0.0 K/mcL (0.0-0.2) 09/27/17 17:10 Sodium 139 mEq/L (136-145) 09/27/17 17:10 Potassium 4.1 mEq/L (3.5-5.1) 09/27/17 17:10 Chloride 104 mEq/L (98-107) 09/27/17 17:10 Carbon Dioxide 30 mEq/L (23-29) H 09/27/17 17:10 BUN 11 mg/dL (6-20) 09/27/17 17:10 Creatinine 0.78 mg/dL (0.70-1.30) 09/27/17 17:10 Est GFR ( Amer) > 60 (> 60) 09/27/17 17:10 Est GFR (Non-Af Amer) > 60 (> 60) 09/27/17 17:10 BUN/Creatinine Ratio 14 (6-26) 09/27/17 17:10 Glucose 105 mg/dL (70-105) 09/27/17 17:10 Calculated Osmolality 288 (280-300) 09/27/17 17:10 Calcium 10.3 mg/dL (8.6-10.3) 09/27/17 17:10 Urine Color Yellow (Yellow) 09/27/17 17:13 Urine Clarity Clear (Clear) 09/27/17 17:13 Urine pH 6.0 pH Units (5.0-8.0) 09/27/17 17:13 Ur Specific [place] 1.015 (1.010-1.025) 09/27/17 17:13 Urine Protein Negative mg/dL (Neg-Trace) 09/27/17 17:13 Urine Glucose (UA) Normal mg/dL (Normal) 09/27/17 17:13 Urine Ketones Negative mg/dL (Negative) 09/27/17 17:13 Urine Blood Negative (Negative) 09/27/17 17:13 Urine Nitrite Negative (Negative) 09/27/17 17:13 Urine Bilirubin Negative (Negative) 09/27/17 17:13 Urine Urobilinogen Normal mg/dL (Normal) 09/27/17 17:13 Ur Leukocyte Esterase Negative (Negative) 09/27/17 17:13 Salicylates < 2.5 mg/dL (15.0-30.0) L 09/27/17 17:10 Urine Opiates Screen Negative ng/mL (Nmawqq=635) 09/27/17 17:13 Acetaminophen < 10 mcg/mL (10-20) L 09/27/17 17:10 Ur Barbiturates Screen Negative ng/mL (Lvrxnw=364) 09/27/17 17:13 Ur Phencyclidine Scrn Negative ng/mL (Cutoff=25) 09/27/17 17:13 Ur Amphetamines Screen Negative ng/mL ([place]=8948) 09/27/17 17:13 U Benzodiazepines Scrn Negative ng/mL (Skdcsv=316) 09/27/17 17:13 Urine Cocaine Screen Negative ng/mL (Cutoff= 300) 09/27/17 17:13 U Marijuana (THC) Screen Negative ng/mL (Cutoff = 50) 09/27/17 17:13 Ethyl Alcohol < 10 mg/dL (Less than 10) 09/27/17 17:10 Assessment and Plan (1) Suicidal ideation Current visit: Yes Status: Acute Plan: Admit inpatient for safety and stabilization, Close observation, Suicide Precautions per unit protocol, Encourage participation in unit milieu, Group Therapy, Monitor sleep, Monitor appetite, Secure weapons, Family/Supportive other meeting Additional Plan: close observation and stabilization Risks, benefits, side effects, alternatives discussed w/pt: Yes Patient agreeable to treatment: Yes Plans for Post Hospital Care: at Home Estimated Length of Stay (Days): 5 (2) Bipolar 2 disorder Current visit: Yes Status: Acute Plan: Admit inpatient for safety and stabilization, Close observation, Suicide Precautions per unit protocol, Encourage participation in unit milieu, Group Therapy, Monitor sleep, Monitor appetite, Family/Supportive other meeting Risks, benefits, side effects, alternatives discussed w/pt: Yes Patient agreeable to treatment: Yes Plans for Post Hospital Care: at Home Estimated Length of Stay (Days): 5 (3) Anxiety Current visit: No Status: Acute Plan: Admit inpatient for safety and stabilization, Suicide Precautions per unit protocol, Monitor sleep, Family/Supportive other meeting Risks, benefits , side effects, alternatives discussed w/pt: Yes Patient agreeable to treatment: Yes Plans for Post Hospital Care: at Home
[2017-09-29] MEDS: hydroCHLOROthiazide 25 MG TABLET PO SCH (09:41)
--- NOTE | 2017-09-29 12:00 | Psychiatry Progress Note ---
Date of Encounter: 09/29/17 Time of Encounter: 11:40 Subjective Interval history: Patient seen today , case d/w staff , remains anxious and feeling same. Patient states i am very anxious and i feel same no difference, i can not take thoughts out of my mind, i do not want ot be feeling like this. he denies side effects , slept better , moods are depress and the sadness i can not stop. he is delusional and anxious. continue sametreatment plan , will increase luvox to 100 mg and lithium to 300 mg am and 600 mg hs. TSH was wnl. Review of Systems Psychiatric: Reports: depression, anxiety, abnormal sleep pattern, suicidal ideation, hopelessness, mood swings Results - Vital Signs Vital Signs: Temp Pulse Resp BP Pulse Ox 97.8 F 88 20 139/96 98 09/29/17 09:00 09/29/17 09:00 09/29/17 09:00 09/29/17 09:00 09/27/17 18:58 - Labs Labs: Laboratory Results - last 24 hr 09/28/17 13:25 TSH 0.916 Assessment and Plan (1) Suicidal ideation Current visit: Yes Status: Acute Risks, benefits, side effects, alternatives discussed w/pt: Yes Patient agreeable to treatment: Yes (2) Bipolar 2 disorder Current visit: Yes Status: Acute Risks, benefits, side effects, alternatives discussed w/pt: Yes Patient agreeable to treatment: Yes (3) Anxiety Current visit: No Status: Acute Risks, benefits, side effects, alternatives discussed w/pt: Yes Patient agreeable to treatment: Yes Consult Discharge Plan - Plan Referrals: NONE,PCP [Primary Care Provider] - Psychiatry Exam - Constitutional Vitals: Temp Pulse Resp BP Pulse Ox 97.8 F 88 20 139/96 98 09/29/17 09:00 09/29/17 09:00 09/29/17 09:00 09/29/17 09:00 09/27/17 18:58 General appearance: unkempt - Musculoskeletal Gait: slow Station: stooped Strength & Tone: normal for patient - Psychiatric Patient Orientation: Yes Person, Yes Time, Yes Place Level of alertness: Alert Behavior: anxious, withdrawn Psychomotor activity: Slowed Eye Contact: Minimal Contact Mood Description: Depressed, Anxious Affect description: congruent with mood Speech Volume: Soft/Quiet Speech pattern: slowed Language & Vocabulary: consistent with education Thought Process: Racing Thought Content: Yes Preoccupation, Yes Yazidi delusion, Yes Obsessive thoughts, Yes Guilt Attention Span Ability: Unable to Sustain Attention Memory Description: Grossly Intact Patient Reliability: Reliable Historian Fund of knowledge: Yes average Intelligence Estimate: Average Judgment: Limited
[2017-09-29] MEDS: hydrOXYzine pamoate 25 MG CAPSULE PO PRN ×2 (17:06→21:13)
[2017-09-29] MEDS: Lithium Carbonate 300 MG CAPSULE PO SCH (21:13)
[2017-09-29] MEDS: traZODone 50 MG TABLET PO PRN (23:40)
[2017-09-30] MEDS: hydroCHLOROthiazide 25 MG TABLET PO SCH (08:47)
[2017-09-30] MEDS: Lithium Carbonate 300 MG CAPSULE PO SCH ×2 (08:47→21:22)
[2017-09-30] MEDS: *HR* LORazepam 1 MG TABLET PO PRN (11:31)
--- NOTE | 2017-09-30 14:01 | Psychiatry Progress Note ---
Date of Encounter: 09/30/17 Time of Encounter: 13:40 Subjective Interval history: Patient seen today , case d/w treatment team , he remains same isolated , depress and internally preoccupied. He had anxiety this morning and had chest pain with it and SOB , was given ativan and he improved , denies any chest pain or SOB now, he did not sleep well last night prn medicine helped, talked about stucking on thoughts of dying and going to hell and feels has committed adultery , he is frustrated and anxious and depress about it. he is not eating well , takes couple bites of food and then stops. will dc seroquel and and start olanzapine. his TSH was wnl. He is not feeling better , as per him in past felt the best on imipramine and klonopin , will decrease luvox and start imipramine and klnopin. contine lithium at present. Review of Systems Psychiatric: Reports: depression, anxiety, abnormal sleep pattern, suicidal ideation, hopelessness, mood swings Results - Vital Signs Vital Signs: Temp Pulse Resp BP Pulse Ox 97.4 F L 111 16 125/93 98 09/30/17 08:48 09/30/17 08:48 09/30/17 08:48 09/30/17 08:48 09/27/17 18:58 Assessment and Plan (1) Suicidal ideation Current visit: Yes Status: Acute Risks, benefits, side effects, alternatives discussed w/pt: Yes Patient agreeable to treatment: Yes (2) Bipolar 2 disorder Current visit: Yes Status: Acute Risks, benefits, side effects, alternatives discussed w/pt: Yes Patient agreeable to treatment: Yes (3) Anxiety Current visit: No Status: Acute Risks, benefits, side effects, alternatives discussed w/pt: Yes Patient agreeable to treatment: Yes Consult Discharge Plan - Plan Referrals: [facility] [Outside] - 11/28/17 2:00 pm (The above appointment is with Marcela Dozier for outpatient mental health counselling. Please bring photo ID ,insurance card and arrive 15 minutes before appointment for paperwork. Call at least 24 hours ahead for cancellations.) Rekha Tellez DO [Resident] - 10/10/17 10:15 am (The above appointment is with Dr. Tellez for primary care.please bring photo ID and insurance card to appointment.) Psychiatry Exam - Constitutional Vitals: Temp Pulse Resp BP Pulse Ox 97.4 F L 111 16 125/93 98 09/30/17 08:48 09/30/17 08:48 09/30/17 08:48 09/30/17 08:48 09/27/17 18:58 General appearance: unkempt, average - Musculoskeletal Gait: normal Station: other Strength & Tone: normal for patient - Psychiatric Patient Orientation: Yes Person, Yes Time, Yes Place Level of alertness: Alert Behavior: cooperative, anxious, withdrawn Psychomotor activity: Normal Eye Contact: Minimal Contact Mood Description: Depressed, Anxious Affect description: congruent with mood Speech Volume: Normal Speech pattern: coherent, repetetive Language & Vocabulary: consistent with education Thought Content: Yes Preoccupation Attention Span Ability: Unable to Sustain Attention Memory Description: Grossly Intact Patient Reliability: Reliable Historian Intelligence Estimate: Average Judgment: Limited Insight: Full
[2017-09-30] MEDS: OLANZapine 5 MG TAB.RAPDIS PO SCH (17:04)
[2017-09-30] MEDS: traZODone 50 MG TABLET PO PRN (21:22)
[2017-10-01 00:08] LABS: Estimated Average Glucose 114 mg/dl; Hemoglobin A1C 5.6 %
[2017-10-01] MEDS: hydroCHLOROthiazide 25 MG TABLET PO SCH (08:31)
[2017-10-01] MEDS: Lithium Carbonate 300 MG CAPSULE PO SCH ×2 (08:31→20:05)
[2017-10-01] MEDS: clonazePAM 0.5 MG TABLET PO PRN (08:34)
--- NOTE | 2017-10-01 13:27 | Psychiatry Progress Note ---
Date of Encounter: 10/01/17 Time of Encounter: 13:10 Subjective Interval history: Patient seen today , case d/w treatment team and states i feel like i am getting little better , still has thought about going to hell but now i can distract myself, he still is religiously preoccupied and reading bible and had talk with pasyor. he denies side effects d/w patient the medications he is on and their side effects explained in detail. lithium level0.5 , hga1c is wnl , tsh is wnl. will dc luvox and increase impiramine to 50 mg hs. Review of Systems Psychiatric: Reports: depression, anxiety, abnormal sleep pattern, hopelessness , mood swings Results - Vital Signs Vital Signs: Temp Pulse Resp BP Pulse Ox 98.5 F 94 20 147/100 98 10/01/17 09:00 10/01/17 09:00 10/01/17 09:00 10/01/17 09:00 09/27/17 18:58 - Drug Levels and Toxicology Drug Levels and Toxicology: Drug Levels and Toxicity 10/01/17 08:30 [place] 0.5 L - Labs Labs: Laboratory Results - last 24 hr 09/28/17 10/01/17 13:25 08:30 Est Mean Plasma Glucose 114 Hemoglobin A1c 5.6 [place] 0.5 L Assessment and Plan (1) Suicidal ideation Current visit: Yes Status: Acute Risks, benefits, side effects, alternatives discussed w/pt: Yes Patient agreeable to treatment: Yes (2) Bipolar 2 disorder Current visit: Yes Status: Acute Risks, benefits, side effects, alternatives discussed w/pt: Yes Patient agreeable to treatment: Yes (3) Anxiety Current visit: No Status: Acute Risks, benefits, side effects, alternatives discussed w/pt: Yes Patient agreeable to treatment: Yes Consult Discharge Plan - Plan Referrals: [facility] [Outside] - 11/28/17 2:00 pm (The above appointment is with Marcela Dozier for outpatient mental health counselling. Please bring photo ID ,insurance card and arrive 15 minutes before appointment for paperwork. Call at least 24 hours ahead for cancellations.) Rekha Tellez DO [Resident] - 10/10/17 10:15 am (The above appointment is with Dr. Tellez for primary care.please bring photo ID and insurance card to appointment.) Psychiatry Exam - Constitutional Vitals: Temp Pulse Resp BP Pulse Ox 98.5 F 94 20 147/100 98 10/01/17 09:00 10/01/17 09:00 10/01/17 09:00 10/01/17 09:00 09/27/17 18:58 General appearance: unkempt, average - Musculoskeletal Gait: slow Station: other Strength & Tone: normal for patient - Psychiatric Patient Orientation: Yes Person, Yes Time, Yes Place Level of alertness: Alert Behavior: cooperative, withdrawn Psychomotor activity: Slowed Eye Contact: Minimal Contact Mood Description: Depressed, Anxious Affect description: congruent with mood Speech Volume: Soft/Quiet Speech pattern: coherent, slowed Language & Vocabulary: consistent with education Thought Process: Racing Thought Content: Yes Preoccupation, Yes Evangelical delusion, Yes Guilt Attention Span Ability: Capable of Focused Attention Memory Description: Grossly Intact Patient Reliability: Reliable Historian Fund of knowledge: Yes average Intelligence Estimate: Average Judgment: Limited Insight: Partial
[2017-10-01] MEDS: Ibuprofen 400 MG TABLET PO PRN (17:10)
[2017-10-01] MEDS: OLANZapine 5 MG TAB.RAPDIS PO SCH (17:10)
[2017-10-01] MEDS: hydrOXYzine pamoate 25 MG CAPSULE PO PRN (18:35)
[2017-10-01] MEDS: *HR* LORazepam 1 MG TABLET PO PRN (20:05)
[2017-10-02 08:37] LABS: Basophils % 0.5 %; Eosinophils # 0.3 K/mcL (0.0-0.6); Hematocrit 45.3 % (37.5-50.1); Hemoglobin 14.9 g/dL (12.9-16.9); Immature Granulocytes % 0.3 % (0-4); Lymphocytes # 2.7 K/mcL (0.6-4.6); Lymphocytes % 34.2 %; Mean Corpuscular HGB Conc 32.9 g/dL (31.6-35.5); Mean Corpuscular Hemoglobin 26.4 pg (28.0-33.3); Mean Corpuscular Volume 80.2 fL (83.0-100.0); Mean Platelet Volume 9.1 fL (9.4-12.4); Monocytes # 0.6 K/mcL (0.0-1.3); Monocytes % 8.1 %; Neutrophils # 4.2 K/mcL (1.6-8.9); Platelet Count 332 K/mcL (140-400); Red Blood Count 5.65 M/mcL (4.19-5.50); Red Cell Distribution Width 13.3 % (11.5-14.5); Segmented Neutrophils % 52.9 %
[2017-10-02] MEDS: Lithium Carbonate 300 MG CAPSULE PO SCH ×2 (08:37→21:00)
[2017-10-02] MEDS: hydroCHLOROthiazide 25 MG TABLET PO SCH (08:37)
[2017-10-02 08:58] LABS: BUN/Creatinine Ratio 14 (6-26); Blood Urea Nitrogen 11 mg/dL (6-20); Carbon Dioxide 27 mEq/L (23-29); Chloride 99 mEq/L (98-107); Glucose 102 mg/dL (70-105); Sodium 135 mEq/L (136-145); eGFR For African Americans > 60 (> 60); eGFR For Non-African Americans > 60 (> 60)
[2017-10-02 08:59] LABS: Calcium 10.3 mg/dL (8.6-10.3); Osmolality,Calculated 280 (280-300)
[2017-10-02] MEDS: clonazePAM 0.5 MG TABLET PO PRN ×2 (09:01→17:16)
--- NOTE | 2017-10-02 12:48 | Psychiatry Progress Note ---
Date of Encounter: 10/02/17 Time of Encounter: 12:23 Subjective Interval history: Patient seen today case d/w treatment team ,patient did not attended groups yesterday as per staff and is mostly in his room . He states during morning i did not go as i was little drowsy , i am feeling little better today and first time little happy today , he is out and more verbal and talkative and not withdrawn , no thoughts of hurting self/others and the thoughts of going to hell and other thoughts are decreasing, his anxiety is better but at times it gets worse, educated about relaxing and deep breathing and d/w him about klonopin and dependence , he acknowledged. side effects none. start discharge planning. Review of Systems Psychiatric: Reports: depression, anxiety Results - Vital Signs Vital Signs: Temp Pulse Resp BP Pulse Ox 98.4 F 116 16 148/118 98 10/02/17 08:23 10/02/17 08:23 10/02/17 08:23 10/02/17 08:23 09/27/17 18:58 - Drug Levels and Toxicology Drug Levels and Toxicology: Drug Levels and Toxicity 10/02/17 08:03 [place] 0.6 - Labs Labs: Laboratory Results - last 24 hr 10/02/17 10/02/17 10/02/17 08:03 08:03 08:03 WBC 7.9 RBC 5.65 H Hgb 14.9 Hct 45.3 MCV 80.2 L MCH 26.4 L MCHC 32.9 RDW 13.3 Plt Count 332 MPV 9.1 L Immature Gran % 0.3 Seg Neutrophils % 52.9 Lymphocytes % 34.2 Monocytes % 8.1 Eosinophils % 4.0 Basophils % 0.5 Neutrophils # 4.2 Lymphocytes # 2.7 Monocytes # 0.6 Eosinophils # 0.3 Basophils # 0.0 Sodium 135 L Potassium 4.0 Chloride 99 Carbon Dioxide 27 BUN 11 Creatinine 0.81 Est GFR ( Amer) > 60 Est GFR (Non-Af Amer) > 60 BUN/Creatinine Ratio 14 Glucose 102 Calculated Osmolality 280 Calcium 10.3 [place] 0.6 Assessment and Plan (1) Suicidal ideation Current visit: Yes Status: Acute Risks, benefits, side effects, alternatives discussed w/pt: Yes Patient agreeable to treatment: Yes (2) Bipolar 2 disorder Current visit: Yes Status: Acute Risks, benefits, side effects, alternatives discussed w/pt: Yes Patient agreeable to treatment: Yes (3) Anxiety Current visit: No Status: Acute Risks, benefits, side effects, alternatives discussed w/pt: Yes Patient agreeable to treatment: Yes Consult Discharge Plan - Plan Referrals: [facility] [Outside] - 11/28/17 2:00 pm (The above appointment is with Marcela Dozier for outpatient mental health counselling. Please bring photo ID ,insurance card and arrive 15 minutes before appointment for paperwork. Call at least 24 hours ahead for cancellations.) Rekha Tellez DO [Resident] - 10/10/17 10:15 am (The above appointment is with Dr. Tellez for primary care. Please bring photo ID and insurance card to appointment.) Psychiatry Exam - Constitutional Vitals: Temp Pulse Resp BP Pulse Ox 98.4 F 116 16 148/118 98 10/02/17 08:23 10/02/17 08:23 10/02/17 08:23 10/02/17 08:23 09/27/17 18:58 General appearance: average - Musculoskeletal Gait: normal Station: relaxed Strength & Tone: normal for patient - Psychiatric Patient Orientation: Yes Person, Yes Time, Yes Place Level of alertness: Alert Behavior: cooperative, anxious Psychomotor activity: Normal Eye Contact: Maintains Eye Contact Mood Description: Anxious Affect description: congruent with mood Speech Volume: Normal Speech pattern: coherent Language & Vocabulary: consistent with education Thought Process: Intact Thought Content: Yes Intact, Yes Obsessive thoughts Perceptual Disturbances: No Auditory hallucinations, No Visual hallucinations Attention Span Ability: Capable of Focused Attention Memory Description: Grossly Intact Patient Reliability: Reliable Historian Fund of knowledge: Yes abstraction ability, Yes aware of current events Intelligence Estimate: Average Judgment: Fair Insight: Full
[2017-10-02] MEDS: OLANZapine 5 MG TAB.RAPDIS PO SCH (17:16)
[2017-10-02] MEDS: Ibuprofen 400 MG TABLET PO PRN (21:35)
[2017-10-02] MEDS: traZODone 50 MG TABLET PO PRN (22:43)
[2017-10-03] MEDS: hydroCHLOROthiazide 25 MG TABLET PO SCH (08:21)
[2017-10-03] MEDS: Lithium Carbonate 300 MG CAPSULE PO SCH (08:21)
[2017-10-03 09:40] VITALS: BP 127/94
--- NOTE | 2017-10-03 10:33 | Discharge Summary ---
Date of Encounter: 10/03/17 Time of Encounter: 10:00 Diagnosis - Discharge Diagnosis (1) Suicidal ideation Status: Resolved Comments: PATIENT NOT IN IMENENT DANGER TO SELF OR OTHERS (2) Bipolar 2 disorder Status: Acute Comments: PATIENT HAS SHOWN IMPROVEMENT AND BASELINE (3) Anxiety Status: Acute Medications - Discharge Medications Prescriptions: clonazePAM [Klonopin] 0.5 mg PO BID PRN 30 Days #60 tablet PRN Reason: Anxiety Imipramine HCl [Tofranil] 50 mg PO HS #30 tablet Fabens Carbonate 300 mg PO DAILY #30 capsule Fabens Carbonate 600 mg PO HS #30 capsule OLANZapine [Zyprexa Zydis] 5 mg PO QPM #30 tab.rapdis Esomeprazole Magnesium [Nexium] 40 mg PO DAILY 09/03/17 [History] Losartan Potassium [Cozaar] 100 mg PO DAILY 09/03/17 [History] hydroCHLOROthiazide [Hydrochlorothiazide] 25 mg PO DAILY 09/03/17 [History] Imipramine HCl [Tofranil] 50 mg PO HS #30 tablet 10/03/17 [Rx] Fabens Carbonate 300 mg PO DAILY #30 capsule 10/03/17 [Rx] Fabens Carbonate 600 mg PO HS #30 capsule 10/03/17 [Rx] OLANZapine [Zyprexa Zydis] 5 mg PO QPM #30 tab.rapdis 10/03/17 [Rx] clonazePAM [Klonopin] 0.5 mg PO BID PRN 30 Days #60 tablet 10/03/17 [Rx] hydroCHLOROthiazide [Hydrochlorothiazide] 25 mg PO DAILY tablet 10/03/17 [Rx] 3 Allergy/AdvReac Type Severity Reaction Status Date / Time Penicillins [PCN] Allergy Anaphylaxis Verified 09/03/17 12:12 hydrocodone [From Vicodin] AdvReac Chest Pain Verified 09/27/17 20:48 Results Procedures and tests throughout hospitalization: Completed Lab Orders Category Date Time Status CBC [Complete Blood Count] [HEME] Routine Lab 10/02/17 08:03 Completed Chem 7 [Basic Metabolic Panel] Routine Lab 10/02/17 08:03 Completed Hgb A1C Routine Lab 09/28/17 13:25 Completed Fabens AM 0400 Lab 10/01/17 08:30 Completed Fabens Routine Lab 10/02/17 08:03 Completed TSH [Thyroid Stimulating Hormone] Routine Lab 09/28/17 13:25 Completed Provider Date of admission: 09/27/17 21:51 Primary care physician: PCP NONE Consults: 09/27/17 22:57 Consult to Pastoral Services [CONS] Routine Comment: Psychiatry Exam - Constitutional Vitals: Temp Pulse Resp BP Pulse Ox 98.2 F 111 16 127/94 98 10/03/17 09:00 10/03/17 09:00 10/03/17 09:00 10/03/17 09:00 09/27/17 18:58 General appearance: age & developmentally appropriate - Musculoskeletal Gait: normal Station: relaxed Strength & Tone: normal for patient - Psychiatric Patient Orientation: Yes Person, Yes Place Level of alertness: Alert Behavior: calm, cooperative Psychomotor activity: Normal Eye Contact: Maintains Eye Contact Mood Description: Euthymic/stable Affect description: congruent with mood Speech Volume: Normal Speech pattern: appropriate, coherent Language & Vocabulary: consistent with education Thought Process: Intact Thought Content: No Suicidal ideation, No Homicidal ideation, No Overt delusions Perceptual Disturbances: No Auditory hallucinations, No Visual hallucinations Attention Span Ability: Capable of Focused Attention Memory Description: Grossly Intact Patient Reliability: Reliable Historian Fund of knowledge: Yes abstraction ability, Yes aware of current events Intelligence Estimate: Average Judgment: Good Insight: Full Hospital Course Hospital course: Mr. Harrington is a 42 year old male was admitted from ED for depression and suicidal ideation . HPI He is lives with family and has h/o depression and anxiety and in treatment for more than 20 yrs. He states i got in january last year and since then i am having thoughts that i have committed adultery and i will go to hell and i can not take that thought out of my mind and i am very depress and reading bible states he became suicidal and had plan to take bunch of medicine and sleep. I can not shut that thought off. he states the scripture does not say that but i see it and i can not be single as i like being . 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 Patient has been tried multiple medications in last recent year and had not seen psychiatrist. he is preoccupied with his thought and feels impending doom and feels hopeless. , excessive guilt, worthless and like if i had tried harder with his first marriage and not get divorce and now and feels committing adultery. patient has racing thoughts, preoccupation with his thoughts , mood swings, difficulty concenteration , suicidal thoughts. i can not look any body as that is sin to and it is overwhelming. he has not been taking his medication as he was supposed to because of insomnia and sexual side effects. he gives h/o racing thougts , mood swings and promiscus behaviors , spending sprees , impulsive. 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 Time spent discussing smoking cessation with patient: 3 to 10 minutes Does patient wish to continue nicotine replacement upon disc: No (does not smoke ) - Time Spent with Patient Total time spent providing and/or coordinating discharge services: Greater than 30 minutes Assessment and Plan - Patient/Caregiver Discharge Instructions Activity: resume usual activities as tolerated Diet: regular diet - Follow up Plan Follow up with: [facility] [Outside] - 10/23/17 2:00 pm (The above appointment is with Marcela Dozier for outpatient mental health counselling. Please bring photo ID ,insurance card and arrive 15 minutes before appointment for paperwork. Call at least 24 hours ahead for cancellations.) Rekha Tellez DO [Resident] - 10/10/17 10:15 am (The above appointment is with Dr. Tellez for primary care. Please bring photo ID and insurance card to appointment.) Overall status at discharge: patient is back to baseline Disposition: Home, Self-Care Quality - Multiple Antipsychotics Patient discharged on 2 or more antipsychotic medications: No Procedures - Procedures Procedures: Medication Management, Crisis Stabilization, Supportive Therapy, Group Therapy, Psychoeducational Therapy
[2017-10-03] MEDS: clonazePAM 0.5 MG TABLET PO PRN (10:41)
== END 2017-10-03 11:25 | disposition home or self-care (01) | DRG 885 ==
LOC: EMEROO 16:50 → SUATTDRO 21:51 → 1ANU 21:51
PROVIDERS: ADMIT General Practice; ATTEND Psychiatry & Neurology Psychiatry

== ENCOUNTER 2020-10-20 11:51 | Observation (INO) ==
[2020-10-20 12:26] LABS: Basophils % 0.5 %; Eosinophils # 0.3 K/mcL (0.0-0.6); Eosinophils % 3.9 %; Hematocrit 45.4 % (37.5-50.1); Hemoglobin 14.2 g/dL (12.9-16.9); Immature Granulocytes % 0.3 % (0-4); Lymphocytes # 2.2 K/mcL (0.6-4.6); Lymphocytes % 29.6 %; Mean Corpuscular HGB Conc 31.3 g/dL (31.6-35.5); Mean Corpuscular Hemoglobin 25.4 pg (28.0-33.3); Mean Corpuscular Volume 81.1 fL (83.0-100.0); Mean Platelet Volume 9.7 fL (9.4-12.4); Monocytes # 0.5 K/mcL (0.0-1.3); Monocytes % 6.8 %; Neutrophils # 4.4 K/mcL (1.6-8.9); Platelet Count 318 K/mcL (140-400); Red Cell Distribution Width 13.5 % (11.5-14.5); Segmented Neutrophils % 58.9 %; White Blood Count 7.5 K/mcL (4.3-11.1)
[2020-10-20] MEDS ORDERED: Isovue-370 500 ML BOTTLE IVP ONE (12:43)
[2020-10-20] MEDS ORDERED: 0.9 % Sodium Chloride 1,000 ML IVC ONE (12:43)
[2020-10-20] MEDS ORDERED: *HR* FentaNYL (PF) 100 MCG/2 ML VIAL IVP ONE (12:43)
[2020-10-20 12:49] LABS: BUN/Creatinine Ratio 23 (6-26); Blood Urea Nitrogen 14 mg/dL (6-20); Calcium 9.7 mg/dL (8.6-10.3); Carbon Dioxide 27 mEq/L (23-29); Chloride 106 mEq/L (98-107); Glucose 109 mg/dL (70-105); Osmolality,Calculated 289 (280-300); Potassium 4.1 mEq/L (3.5-5.1); Sodium 139 mEq/L (136-145); Troponin I < 0.03 ng/mL (< 0.04); eGFR For African Americans > 60 (> 60); eGFR For Non-African Americans > 60 (> 60)
[2020-10-20] MEDS ORDERED: *HR* Heparin 5,000 UNIT/ML VIAL IVP ONE (14:26)
[2020-10-20] MEDS ORDERED: Aspirin 81 MG TAB.CHEW PO STA (14:26)
[2020-10-20] MEDS ORDERED: *HR* Heparin 5,000 UNIT/ML VIAL IVP PRN ×2 (14:26)
[2020-10-20 15:15] LABS: Hematocrit 44.4 % (37.5-50.1); Hemoglobin 13.8 g/dL (12.9-16.9); Mean Corpuscular HGB Conc 31.1 g/dL (31.6-35.5); Mean Corpuscular Hemoglobin 25.5 pg (28.0-33.3); Mean Corpuscular Volume 81.9 fL (83.0-100.0); Mean Platelet Volume 9.5 fL (9.4-12.4); Platelet Count 321 K/mcL (140-400); Red Blood Count 5.42 M/mcL (4.19-5.50); Red Cell Distribution Width 13.7 % (11.5-14.5); White Blood Count 9.2 K/mcL (4.3-11.1)
[2020-10-20 15:30] LABS: Prothrombin Time 11.1 Seconds (9.4-12.1)
[2020-10-20 15:32] LABS: Heparin anti-factor XA UFH < 0.04 IU/mL (0.30-0.70)
[2020-10-20] MEDS ORDERED: Naloxone 0.4 MG/ML INJ IVP PRN (15:32)
[2020-10-20] MEDS ORDERED: Ondansetron 4 MG/2 ML VIAL IVP PRN (15:32)
[2020-10-20] MEDS ORDERED: Nitroglycerin 0.4 MG TAB.SUBL SL PRN (15:35)
[2020-10-20] MEDS ORDERED: Perflutren Lipid Microsphere 1.3 ML in 0.9 % Sodium Chloride 8.7 ML IVP PRN (15:35)
[2020-10-20 16:34] LABS: Magnesium 2.1 mg/dL (1.6-2.6)
[2020-10-20 16:45] LABS: Thyroid Stimulating Hormone 2.321 mcIU/mL (0.340-5.600)
[2020-10-20] MEDS: Heparin 25,000UNIT/250ML 1/2NS 25,000 UNIT/250 ML IV.SOLN IVC SCH (16:50)
[2020-10-20] MEDS ORDERED: *HR* Metoprolol 5 MG/5 ML VIAL IVP ONE (19:18)
[2020-10-20] MEDS ORDERED: Acetaminophen 325 MG TABLET PO ONE (19:38)
[2020-10-20] MEDS ORDERED: SUMAtriptan succinate 50 MG TABLET PO ONE (21:05)
[2020-10-21] MEDS ORDERED: Morphine Sulfate 2 MG/ML SYRINGE IVP ONE (00:01)
[2020-10-21 00:32] LABS: Hematocrit 40.3 % (37.5-50.1); Hemoglobin 13.3 g/dL (12.9-16.9); Mean Corpuscular Hemoglobin 26.3 pg (28.0-33.3); Mean Corpuscular Volume 79.8 fL (83.0-100.0); Mean Platelet Volume 9.5 fL (9.4-12.4); Platelet Count 299 K/mcL (140-400); Red Blood Count 5.05 M/mcL (4.19-5.50); Red Cell Distribution Width 13.5 % (11.5-14.5); White Blood Count 9.7 K/mcL (4.3-11.1)
[2020-10-21 00:51] LABS: Alanine Aminotransferase 25 Units/L (7-52); Albumin/Globulin Ratio 1.5 (1.1-2.2); Alkaline Phosphatase 80 Units/L (34-104); Aspartate Amino Transferase 17 Units/L (13-39); BUN/Creatinine Ratio 18 (6-26); Bilirubin,Total 0.3 mg/dL (0.3-1.0); Blood Urea Nitrogen 11 mg/dL (6-20); Calcium 9.2 mg/dL (8.6-10.3); Carbon Dioxide 26 mEq/L (23-29); Chloride 107 mEq/L (98-107); Chol/HDL Ratio 6.8 (0-4.9); Cholesterol 189 mg/dL (< 200); Globulin 2.6 g/dL (2.4-3.5); Glucose 103 mg/dL (70-105); HDL Cholesterol 28 mg/dL (40-59); LDL Cholesterol,Calculated 111 mg/dL (< 100); Osmolality,Calculated 290 (280-300); Potassium 3.9 mEq/L (3.5-5.1); Sodium 140 mEq/L (136-145); Total Protein 6.6 g/dL (6.4-8.9); Triglycerides 249 mg/dL (< 150); eGFR For African Americans > 60 (> 60); eGFR For Non-African Americans > 60 (> 60)
[2020-10-21] MEDS ORDERED: amLODIPine 5 MG TABLET PO SCH (09:00)
[2020-10-21] MEDS ORDERED: Aspirin 81 MG TAB.CHEW PO SCH (09:00)
[2020-10-21] MEDS ORDERED: hydroCHLOROthiazide 25 MG TABLET PO SCH (09:00)
[2020-10-21] MEDS ORDERED: Regadenoson 0.4 MG/5 ML SYRINGE IVP ONE (11:58)
[2020-10-21 14:16] VITALS: BP 136/85; PULSE 69; TEMP 98.1; O2SAT 93
[2020-10-21] MEDS: Heparin 25,000UNIT/250ML 1/2NS 25,000 UNIT/250 ML IV.SOLN IVC SCH (16:11)
[2020-10-21 17:07] LABS: Estimated Average Glucose 128 mg/dl; Hemoglobin A1C 6.1 %
== END 2020-10-21 17:00 | disposition home or self-care (01) ==
LOC: 3BNU 11:51 → EMEROOARM 11:51 → 3BNU 18:40
PROVIDERS: ADMIT Pharmacist; ATTEND Pharmacist